=== PATIENT | male | born 1955 | race Hispanic/Latino ===

== ENCOUNTER 2018-04-03 15:47 | Emergency (ER) | payer SELFPAY | END 2018-04-03 17:08 | disposition home or self-care (01) | LOC: ERS 15:47 | DX: M72.2 Plantar fascial fibromatosis (principal); E11.9 Type 2 diabetes mellitus without complications; I10 Essential (primary) hypertension; I25.10 Atherosclerotic heart disease of native coronary artery without angina pectoris; I25.2 Old myocardial infarction; Z87.891 Personal history of nicotine dependence; Z79.4 Long term (current) use of insulin; Z79.899 Other long term (current) drug therapy | CPT/HCPCS: 99283 ==

== ENCOUNTER 2018-09-26 10:42 | Emergency (ER) | payer BC, SELFPAY ==
[2018-09-26 12:12] LABS: Anion Gap 10 mmol/L (10-20); BUN (Urea Nitrogen) 11 mg/dL (8.4-25.7); Calc. Creatinine Clearance 0 mL/min (70-130); Carbon Dioxide 27 mmol/L (22-29); Chloride 102 mmol/L (98-107); Estimated GFR-MDRD 88; Glucose 344 mg/dL (70-105); Potassium 4.1 mmol/L (3.5-5.1); Sodium 135 mmol/L (136-145)
== END 2018-09-26 12:30 | disposition home or self-care (01) ==
LOC: ERS 10:42
DX: M62.838 Other muscle spasm (principal); E11.9 Type 2 diabetes mellitus without complications; Z79.4 Long term (current) use of insulin; I10 Essential (primary) hypertension; I25.10 Atherosclerotic heart disease of native coronary artery without angina pectoris; I25.2 Old myocardial infarction; Z87.891 Personal history of nicotine dependence; Z79.899 Other long term (current) drug therapy
CPT/HCPCS: 36415; 80048; 83735; 99284

== ENCOUNTER 2019-02-01 09:48 | Emergency (ER) | payer BC, SELFPAY ==
[2019-02-01 11:54] LABS: Bilirubin Negative (Negative); Blood, Urine Negative (Negative); Glucose, Urine (Dipstick) >=1000 mg/dL (Negative); Leukocyte Negative (Negative); Nitrite Negative (Negative); Protein, Urine (Dipstick) Trace mg/dL (Neg-Trace); pH, Urine 7.5 (5.0-9.0)
[2019-02-01 12:00] LABS: Clarity CLEAR (Clear)
[2019-02-01 12:06] LABS: Syphilis Antibody Nonreactive (Nonreactive); Syphilis Antibody Index 0.02 S/CO (<1.00 Non-Reactive)
== END 2019-02-01 11:14 | disposition home or self-care (01) ==
LOC: ERS 09:48
DX: N47.1 Phimosis (principal); E11.9 Type 2 diabetes mellitus without complications; I10 Essential (primary) hypertension; I25.10 Atherosclerotic heart disease of native coronary artery without angina pectoris; I25.2 Old myocardial infarction; Z87.891 Personal history of nicotine dependence; Z79.4 Long term (current) use of insulin; Z79.899 Other long term (current) drug therapy
CPT/HCPCS: 36415; 81003; 86780; 99283

== ENCOUNTER 2020-06-06 14:39 | Outpatient (CLI) | payer BC, OTHER ==
--- NOTE | 2020-06-06 15:51 | RAD ---
Exam: Chest one view HISTORY:Preoperative exam. Comparison: 12/14/2016 FINDINGS: Cardiac silhouette: Normal. Sternotomy wires. Aorta: Unremarkable Pulmonary vessels: Normal Costophrenic angles: Clear LUNGS: No masses or consolidation. Pneumothorax: None Osseous abnormalities: None IMPRESSION: No acute cardiopulmonary process.
[2020-06-06 18:09] LABS: #Basophils 0.1 thou/uL (0.0-0.2); #Eosinphils 0.2 thou/uL (0.0-0.7); #Monocytes 0.6 thou/uL (0.11-0.59); #Neutrophils 3.1 thou/uL (1.40-6.50); %Basophils 1.4 % (0.0-1.0); %Lymphocytes 33.9 % (21.0-51.0); %Monocytes 9.4 % (0.0-10.0); %Neutrophils 52.4 % (42.0-75.0); Mean Corpuscular HGB CONC 33.4 g/dL (32.0-36.0); Mean Corpuscular Hemoglobin 30.3 pg (27.0-31.0); Mean Corpuscular Volume 90.7 fL (78.0-98.0); Mean Platelet Volume 10.3 fL (7.4-10.4); Platelet Count 177 thou/uL (130-400); RBC Distribution Width 11.8 % (11.5-14.5); Red Blood Cell (RBC) Count 4.95 mill/uL (4.70-6.10)
[2020-06-06 19:15] LABS: ALT (SGPT) 18 U/L (8-55); AST (SGOT) 17 U/L (5-34); Albumin 4.1 g/dL (3.4-4.8); Alkaline Phosphatase 139 U/L (40-110); Anion Gap 10 mmol/L (10-20); BUN (Urea Nitrogen) 18 mg/dL (8.4-25.7); Bilirubin, Total 0.5 mg/dL (0.2-1.2); Calc. Creatinine Clearance 0 mL/min (70-130); Calcium 9.3 mg/dL (7.8-10.44); Carbon Dioxide 24 mmol/L (23-31); Cardiac Risk 7.1 (Less than 4.5); Chloride 103 mmol/L (98-107); Cholesterol 178 mg/dl (< 200 Desired); Estimated GFR-MDRD 84; Glucose 464 mg/dL (80-115); HDL Cholesterol 25 mg/dL (>60 Neg Risk); Potassium 4.4 mmol/L (3.5-5.1); Protein, Total 7.1 g/dL (5.8-8.1); Sodium 133 mmol/L (136-145); Triglycerides 863 mg/dL (Less than 150)
[2020-06-07 13:47] LABS: SARS-CoV-2 MS2 Positive; SARS-CoV-2 N Gene Negative; SARS-CoV-2 S Gene Negative; SARS-CoV-2 orf1ab Negative
== END 2020-06-06 14:40 | disposition home or self-care (01) ==
LOC: LABBT 14:39
PROVIDERS: ATTEND Internal Medicine Cardiovascular Disease
DX: Z01.818 Encounter for other preprocedural examination (principal); Z11.59 Encounter for screening for other viral diseases; I25.5 Ischemic cardiomyopathy; R94.39 Abnormal result of other cardiovascular function study
CPT/HCPCS: 71045; 80053; 80061; 85025; 87635; 93005; 93010; U0003

== ENCOUNTER 2020-06-09 06:15 | Observation (INO) | payer BC ==
[2020-06-09] MEDS ORDERED: Heparin 10,000 UNITS/1 ML VIAL ONE (07:46)
[2020-06-09] MEDS ORDERED: Midazolam HCl 2 mg/2 ml Vial ONE (08:28)
[2020-06-09] MEDS ORDERED: Fentanyl 100 MCG/2 ML VIAL ONE (08:28)
[2020-06-09] MEDS ORDERED: Aggrastat 12.5 MG/250 ML 250 ML ONE (09:01)
[2020-06-09] MEDS ORDERED: Adenosine 6 MG/2 ML VIAL ONE (09:03)
[2020-06-09] MEDS ORDERED: Clopidogrel Bisulfate 300 MG TAB ONE (09:19)
[2020-06-09] MEDS ORDERED: Nitroglycerin 0.4 MG TAB (25 Tab Bottle) SL PRN (11:10)
[2020-06-09] MEDS ORDERED: Morphine 2 MG/ML VIAL SLOW IVP PRN (11:11)
[2020-06-09] MEDS ORDERED: Morphine 4 MG/ML VIAL SLOW IVP PRN (11:12)
[2020-06-09] MEDS ORDERED: Aggrastat 12.5 MG/250 ML 250 ML IVPB SCH (11:15)
[2020-06-09] MEDS ORDERED: Sodium Chloride 0.9% 1,000 ML IV SCH (11:15)
[2020-06-09] MEDS ORDERED: Iopamidol 370 76% 50 ML VIAL FS ONE (11:50)
[2020-06-09] MEDS ORDERED: Iopamidol 370 76% 100 ML VIAL ONE (11:50)
[2020-06-09 18:40] VITALS: BMI 28.8
[2020-06-09] MEDS: Carvedilol 3.125 MG TAB PO SCH (19:15)
[2020-06-09] MEDS: Icosapent Ethyl 1 GM CAPSULE PO SCH (19:16)
[2020-06-09] MEDS ORDERED: Icosapent Ethyl 1 GM CAPSULE PO SCH (21:00)
[2020-06-09] MEDS ORDERED: Insulin Glargine 40 UNITS in Pre-Filled Syringe 1 EACH SC SCH (21:00)
[2020-06-09] MEDS ORDERED: Atorvastatin Calcium 40 MG TAB PO SCH (21:00)
[2020-06-09] MEDS ORDERED: Carvedilol 3.125 MG TAB PO SCH (21:00)
[2020-06-09] MEDS: glyBURIDE 5 MG TAB PO SCH (22:04)
[2020-06-10 04:31] LABS: #Basophils 0.1 thou/uL (0.0-0.2); #Eosinphils 0.1 thou/uL (0.0-0.7); #Lymphocytes 2.2 thou/uL (1.20-3.40); #Monocytes 0.6 thou/uL (0.11-0.59); #Neutrophils 5.8 thou/uL (1.40-6.50); %Basophils 0.9 % (0.0-1.0); %Eosinophils 1.4 % (0.0-10.0); %Monocytes 6.9 % (0.0-10.0); %Neutrophils 65.8 % (42.0-75.0); Hemoglobin 14.3 g/dL (14.0-18.0); Mean Corpuscular HGB CONC 33.5 g/dL (32.0-36.0); Mean Corpuscular Hemoglobin 30.4 pg (27.0-31.0); Mean Corpuscular Volume 90.9 fL (78.0-98.0); Mean Platelet Volume 9.6 fL (7.4-10.4); Platelet Count 170 thou/uL (130-400); RBC Distribution Width 11.7 % (11.5-14.5); White Blood Cell (WBC) Count 8.8 thou/uL (4.8-10.8)
[2020-06-10 05:06] LABS: ALT (SGPT) 12 U/L (8-55); AST (SGOT) 10 U/L (5-34); Albumin 3.5 g/dL (3.4-4.8); Alkaline Phosphatase 90 U/L (40-110); Anion Gap 9 mmol/L (10-20); BUN (Urea Nitrogen) 15 mg/dL (8.4-25.7); Bilirubin, Total 0.8 mg/dL (0.2-1.2); Calc. Creatinine Clearance 101 mL/min (70-130); Calcium 8.7 mg/dL (7.8-10.44); Carbon Dioxide 26 mmol/L (23-31); Chloride 105 mmol/L (98-107); Estimated GFR-MDRD Greater than 90; Globulin 2.7 g/dL (2.4-3.5); Glucose 285 mg/dL (80-115); Protein, Total 6.2 g/dL (5.8-8.1); Sodium 136 mmol/L (136-145)
[2020-06-10] MEDS ORDERED: Dextrose 5% in Water 1,000 ML IV PRN (05:50)
[2020-06-10] MEDS ORDERED: Dextrose 50% Abboject 50 ML SYRINGE IVP PRN (05:50)
[2020-06-10] MEDS ORDERED: HumaLOG 300 UNITS/3 ML VIAL SC PRN (05:50)
[2020-06-10 07:24] VITALS: TEMP 98.3
[2020-06-10] MEDS: Icosapent Ethyl 1 GM CAPSULE PO SCH (08:20)
[2020-06-10] MEDS: glyBURIDE 5 MG TAB PO SCH (08:20)
[2020-06-10] MEDS: Carvedilol 3.125 MG TAB PO SCH (08:20)
[2020-06-10] MEDS ORDERED: Furosemide 20 MG TAB PO SCH (09:00)
[2020-06-10] MEDS ORDERED: Alogliptin 6.25 MG TAB PO SCH (09:00)
[2020-06-10] MEDS ORDERED: Clopidogrel Bisulfate 75 MG TAB PO SCH (09:00)
[2020-06-10] MEDS ORDERED: Aspirin 81 mg Enteric Coated Tablet PO SCH ×2 (09:00)
[2020-06-10 12:40] VITALS: BP 136/66
--- NOTE | 2020-06-12 12:48 | DIS ---
DATE OF ADMISSION: 06/09/2020 DATE OF DISCHARGE: 06/10/2020 Pradip Schaeffer is also known as Pradip Schaeffer. DISCHARGE DIAGNOSES: 1. Bare-metal stent placement in the graft to the right posterior descending artery. 2. Status post coronary artery bypass grafting x4 with grafts patent at this time. 3. History of anterior ST-segment elevation myocardial infarction prior to bypass surgery with stent placed in the mid left anterior descending in November 2011. 4. Noncompliance with followups and medications, having not been seen from 2013 until March 2020. 5. Hypertension. 6. Hypercholesterolemia with cholesterol 178, triglycerides 863, and HDL 25. 7. Diabetes, very poorly controlled with blood sugars from 285 to 305. 8. Former smoker. 9. Atrial fibrillation after coronary artery bypass grafting, but no recurrence since that time. 10. Ischemic cardiomyopathy with chronic ejection fraction of 35% to 40% in April 2014; however, this fell on echocardiogram to 30% to 35% and at catheterization is 25%-30%. The patient is being fitted for a LifeVest. DISCHARGE MEDICATIONS: 1. Alogliptin 12.5 mg daily. 2. Aspirin 81 daily. 3. Plavix 75 mg q.a.m. x1 month. 4. Atorvastatin 40 mg at bedtime. 5. Vascepa 2000 mg b.i.d. 6. Carvedilol 3.125 b.i.d. 7. Furosemide 20 mg q.a.m. 8. DiaBeta 5 mg q.a.m. 9. Lantus insulin 40 units at bedtime. 10. Nitroglycerin p.r.n. 11. Entresto 24/26 b.i.d. DISCHARGE DISPOSITION: The patient to be seen in 1 month with lipid testing and complete metabolic panel. It was emphasized to the daughter that she must bring all of his medications for each office visit and to each doctor that she sees. It is very confusing at times with medications being on a list and then the daughter states he is no longer taking that. There was confusion regarding potassium, lisinopril, and simvastatin and it is felt that all of those should be discontinued. HOSPITAL COURSE: Mr. Edgardo Schaeffer was not seen from 2013 until March 2020. He was sent for evaluation of his cardiac status. He had been placed on carvedilol 3 months prior to that, but had been off it for a year or two. When he was seen in March, he was placed on Vascepa 2000 mg b.i.d. EKG at that time showed inverted T-waves laterally, which was a new finding on his EKG. He underwent echocardiography, which revealed an ejection fraction of 30% to 35%, diastolic dysfunction, mild left atrial enlargement, mild mitral regurgitation, and mild tricuspid regurgitation. Due to the lateral wall changes on EKG, he underwent Lexiscan Cardiolite testing. This revealed an ejection fraction of 33%. There was a fixed defect in the distal anterior wall and apex and proximal distal inferior wall. The apical defect is consistent with his STEMI in 2011; however, the fixed inferior wall defect would not be anticipated given his previous anatomy. In the office, arrangements were made for him to get a LifeVest. He now comes for catheterization with his abnormal Cardiolite. Left ventriculogram revealed ejection fraction of 25% to 30%. There was severe global hypokinesis. There was a 50% left main, 60% proximal LAD, total occlusion of the mid LAD at the stent. The first diagonal was totally occluded. Ramus was normal. The circumflex had an 80% mid stenosis and an 80% lesion to the first obtuse marginal. The circumflex was small and was too small for bypass. Right coronary artery revealed a 90% followed by 100% mid occlusion. Bypass grafts revealed patent CATHERINE to the LAD. The diagonal graft was patent. The right posterior lateral graft was patent; however, had a 90% stenosis with thrombus present. The right posterior descending artery graft was piggybacked onto the RPLA graft proximal to the lesion. He then underwent placement of Rebel 2.5 x 24 post dilated with a 3 mm balloon. Bare-metal stent was placed due to the patient's significant noncompliance. He was treated with Aggrastat for 12 hours and observed overnight. LifeVest is being placed and then he may be discharged. Job ID: [id number]
== END 2020-06-10 12:32 | disposition home or self-care (01) ==
LOC: CCL 06:15 → 2NO 10:04
PROVIDERS: ADMIT Internal Medicine Cardiovascular Disease; ATTEND Internal Medicine Cardiovascular Disease
PROC: 4A023N7 Measurement of Cardiac Sampling and Pressure, Left Heart, Percutaneous Approach (ICD-10-PCS; principal; 2020-06-10)
PROC: B2111ZZ Fluoroscopy of Multiple Coronary Arteries using Low Osmolar Contrast (ICD-10-PCS; 2020-06-10)
DX: I25.10 Atherosclerotic heart disease of native coronary artery without angina pectoris (principal); I25.5 Ischemic cardiomyopathy; I48.91 Unspecified atrial fibrillation; E11.9 Type 2 diabetes mellitus without complications; I10 Essential (primary) hypertension; E78.00 Pure hypercholesterolemia, unspecified; Z79.4 Long term (current) use of insulin; Z79.899 Other long term (current) drug therapy; Z87.891 Personal history of nicotine dependence; Z91.19 Patient's noncompliance with other medical treatment and regimen; Z95.1 Presence of aortocoronary bypass graft; Z95.5 Presence of coronary angioplasty implant and graft
CPT/HCPCS: 36415; 36416; 80053; 85025; 85347; 92928; 93005; 93459; 93798; 96365; 96376; 99152; 99153; C1876; G0378; J0153; J1644; J1815; J2250; J3010; J3246; Q9967

== ENCOUNTER 2020-10-28 13:16 | Emergency (ER) | payer BC, MEDICARE ==
[2020-10-28 14:29] LABS: #Lymphocytes 1.9 thou/uL (1.20-3.40); #Monocytes 0.8 thou/uL (0.11-0.59); %Basophils 0.3 % (0.0-1.0); %Eosinophils 0.1 % (0.0-10.0); %Lymphocytes 13.6 % (21.0-51.0); %Monocytes 5.6 % (0.0-10.0); %Neutrophils 80.4 % (42.0-75.0); Hemoglobin 16.6 g/dL (14.0-18.0); Mean Corpuscular HGB CONC 34.8 g/dL (32.0-36.0); Mean Corpuscular Hemoglobin 31.4 pg (27.0-31.0); Mean Platelet Volume 8.8 fL (7.4-10.4); Platelet Count 219 thou/uL (130-400); RBC Distribution Width 12.1 % (11.5-14.5); Red Blood Cell (RBC) Count 5.29 mill/uL (4.70-6.10); White Blood Cell (WBC) Count 13.7 thou/uL (4.8-10.8)
[2020-10-28 14:50] LABS: ALT (SGPT) 15 U/L (8-55); AST (SGOT) 14 U/L (5-34); Albumin 4.4 g/dL (3.4-4.8); Alkaline Phosphatase 104 U/L (40-110); Anion Gap 16 mmol/L (10-20); BUN (Urea Nitrogen) 17 mg/dL (8.4-25.7); Bilirubin, Total 1.5 mg/dL (0.2-1.2); Calc. Creatinine Clearance 0 mL/min (70-130); Calcium 9.6 mg/dL (7.8-10.44); Carbon Dioxide 25 mmol/L (23-31); Chloride 98 mmol/L (98-107); Globulin 3.7 g/dL (2.4-3.5); Glucose 282 mg/dL (80-115); Potassium 4.4 mmol/L (3.5-5.1); Protein, Total 8.1 g/dL (5.8-8.1); Sodium 135 mmol/L (136-145)
== END 2020-10-28 15:40 | disposition home or self-care (01) ==
LOC: ERS 13:16
DX: M62.838 Other muscle spasm (principal); M54.2 Cervicalgia; E11.65 Type 2 diabetes mellitus with hyperglycemia; Z79.899 Other long term (current) drug therapy
CPT/HCPCS: 36415; 80053; 83880; 84484; 85025; 93005

== ENCOUNTER 2020-10-30 01:10 | Emergency (ER) | payer BC, MEDICARE, SELFPAY ==
[2020-10-30] MEDS ORDERED: Bupivacaine 0.5% 10 ML VIAL ONE (02:38)
[2020-10-30] MEDS ORDERED: diphenhydrAMINE 50 MG/ML VIAL ONE (02:38)
[2020-10-30] MEDS ORDERED: Metoclopramide HCl 10 MG/2 ML VIAL ONE (02:38)
[2020-10-30] MEDS ORDERED: Ketorolac Tromethamine 30 MG/ML VIAL ONE (02:38)
[2020-10-30] MEDS ORDERED: Acetaminophen 500 MG TAB ONE (02:38)
== END 2020-10-30 03:40 | disposition home or self-care (01) ==
LOC: ERS 01:10
DX: M54.81 Occipital neuralgia (principal); E11.9 Type 2 diabetes mellitus without complications; I10 Essential (primary) hypertension; I25.10 Atherosclerotic heart disease of native coronary artery without angina pectoris; I25.2 Old myocardial infarction; Z87.891 Personal history of nicotine dependence; Z79.4 Long term (current) use of insulin; Z79.899 Other long term (current) drug therapy
CPT/HCPCS: 94760; 96365; 96375; J1200; J1885; J2765; J3490

== ENCOUNTER 2020-10-30 14:20 | Emergency (ER) | payer SELFPAY ==
[~2020-10-30 14:20] MED LIST: Iopamidol-370 76% 500 ML 1 ML ONE
[2020-10-30] MEDS ORDERED: Metoclopramide HCl 10 MG/2 ML VIAL ONE (18:30)
[2020-10-30] MEDS ORDERED: Acetaminophen 500 MG TAB ONE (18:30)
[2020-10-30] MEDS ORDERED: diphenhydrAMINE 50 MG/ML VIAL ONE (18:30)
[2020-10-30] MEDS ORDERED: Dexamethasone 10 MG/ML VIAL ONE (18:30)
[2020-10-30 19:00] LABS: #Basophils 0.1 thou/uL (0.0-0.2); #Lymphocytes 1.9 thou/uL (1.20-3.40); #Monocytes 0.7 thou/uL (0.11-0.59); #Neutrophils 14.3 thou/uL (1.40-6.50); %Basophils 0.3 % (0.0-1.0); %Eosinophils 0.1 % (0.0-10.0); %Lymphocytes 11.1 % (21.0-51.0); %Monocytes 4.2 % (0.0-10.0); %Neutrophils 84.3 % (42.0-75.0); Hemoglobin 15.7 g/dL (14.0-18.0); Mean Corpuscular HGB CONC 34.8 g/dL (32.0-36.0); Mean Corpuscular Hemoglobin 31.6 pg (27.0-31.0); Mean Corpuscular Volume 90.8 fL (78.0-98.0); Mean Platelet Volume 9.1 fL (7.4-10.4); Platelet Count 198 thou/uL (130-400); RBC Distribution Width 11.9 % (11.5-14.5); Red Blood Cell (RBC) Count 4.96 mill/uL (4.70-6.10); White Blood Cell (WBC) Count 16.9 thou/uL (4.8-10.8)
[2020-10-30 19:24] LABS: ALT (SGPT) 12 U/L (8-55); AST (SGOT) 11 U/L (5-34); Alkaline Phosphatase 99 U/L (40-110); Anion Gap 15 mmol/L (10-20); BUN (Urea Nitrogen) 16 mg/dL (8.4-25.7); Bilirubin, Total 1.1 mg/dL (0.2-1.2); CK (CPK) 116 U/L (30-200); Calc. Creatinine Clearance 0 mL/min (70-130); Calcium 8.8 mg/dL (7.8-10.44); Carbon Dioxide 26 mmol/L (23-31); Chloride 97 mmol/L (98-107); Globulin 3.3 g/dL (2.4-3.5); Glucose 244 mg/dL (80-115); Potassium 4.1 mmol/L (3.5-5.1); Protein, Total 7.3 g/dL (5.8-8.1); Sodium 134 mmol/L (136-145)
--- NOTE | 2020-10-30 19:33 | CT ---
CT Thoracic Spine WO Con History: Pain Comparison: None. Findings: No acute thoracic spine fracture or malalignment. The aortic contour appears normal. Mild atelectasis within the lung bases. No acute thoracic spine fracture or malalignment. Mild vacuum disc phenomenon of the mid and lower ve rtebral disc spaces. Paraspinal soft tissues are unremarkable. Streak artifact from diaphragmatic motion through the T9/T1 0 disc space is the appearance of a disc protrusion although this is felt to be artifactual. Impression: No acute thoracic spine abnormality.
--- NOTE | 2020-10-30 19:52 | CT ---
CTA Angio Head W WO Con CT brain without contrast History: Headache Comparison: None. Findings: CT brain without contrast: Extensive sylvian fissure subarachnoid hemorrhage extending joan g the anterior and posterior falx along with the interpeduncular cistern. No ischemic infarction is appreciated. Calvarium is intact. CT angiogram head and neck with contrast: Lung apices are relatively clear. Vertebral arteries are co dominant and patent. The right common carotid artery is patent. The right internal carotid artery is completely occluded. The cervical, petrous, supraclinoid ICA is occluded. The left common carotid artery is nearly completely occluded with minimal flow of the cervical portio n. Absent flow within the majority of the cervical, petrous, and supraclinoid internal carotid arteries. Thin attenuated anterior cerebral and posterior cerebral arteries. Hypertrophy posterior cerebral art eries. 5 mm pedunculated aneurysm from right P1 segment axial image 214. Impression: 1. Occluded intracranial internal carotid arteries. 2. 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 3. Very thin attenuated anterior cerebral arteries and middle cerebral arteries likely combination of vasospasm and decreased inflow from the occluded internal carotid arteries. 4. Occluded right cervical internal carotid artery. 5. Nearly completely occluded left common carotid artery and occluded left cervical internal carotid artery. 6. Subtle focal ectasia right M1 origin up to 3 mm may be sequelae of hypertrophic communication with the posterior circulation. 7. Neurosurgical consultation advised. 8. Extensive subarachnoid hemorrhage with [place] vasospasm. Findings were discussed with the ordering physician at 2 separate times, 7:20 PM for the subarachnoid hemorrhage and 7:40 PM for the vascular portion of the exam.
[2020-10-30 20:41] LABS: INR-International Normal Ratio 1.1; PTT 29.7 sec (22.9-36.1)
[2020-10-30] MEDS ORDERED: niCARdipine 20MG In NaCl 20 MG/200 ML BAG ONE (21:56)
[2020-10-30 22:58] LABS: SARS-CoV-2 NAA Rapid Test Not Detected (NotDetected)
--- NOTE | 2020-10-31 11:50 | CT ---
CTA Angio Head W WO Con CT brain without contrast History: Headache Comparison: None. Findings: CT brain without contrast: Extensive sylvian fissure subarachnoid hemorrhage extending joan g the anterior and posterior falx along with the interpeduncular cistern. No ischemic infarction is appreciated. Calvarium is intact. CT angiogram head and neck with contrast: Lung apices are relatively clear. Vertebral arteries are co dominant and patent. The right common carotid artery is patent. The right internal carotid artery is completely occluded. The cervical, petrous, supraclinoid ICA is occluded. The left common carotid artery is nearly completely occluded with minimal flow of the cervical portio n. Absent flow within the majority of the cervical, petrous, and supraclinoid internal carotid arteries. Thin attenuated anterior cerebral and posterior cerebral arteries. Hypertrophy posterior cerebral art eries. 5 mm pedunculated aneurysm from right P1 segment axial image 214. Impression: 1. Occluded intracranial internal carotid arteries. 2. 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 3. Very thin attenuated anterior cerebral arteries and middle cerebral arteries likely combination of vasospasm and decreased inflow from the occluded internal carotid arteries. 4. Occluded right cervical internal carotid artery. 5. Nearly completely occluded left common carotid artery and occluded left cervical internal carotid artery. 6. Subtle focal ectasia right M1 origin up to 3 mm may be sequelae of hypertrophic communication with the posterior circulation. 7. Neurosurgical consultation advised. 8. Extensive subarachnoid hemorrhage with [place] vasospasm. Findings were discussed with the ordering physician at 2 separate times, 7:20 PM for the subarachnoid hemorrhage and 7:40 PM for the vascular portion of the exam. Transcribed Date/Time: 10/31/2020 11:50 AM
== END 2020-10-30 22:29 | disposition short-term general hospital (02) ==
LOC: ERS 14:20
DX: I65.29 Occlusion and stenosis of unspecified carotid artery (principal); I60.9 Nontraumatic subarachnoid hemorrhage, unspecified; I72.9 Aneurysm of unspecified site; E11.9 Type 2 diabetes mellitus without complications; I10 Essential (primary) hypertension; I25.2 Old myocardial infarction; Z87.891 Personal history of nicotine dependence; Z79.4 Long term (current) use of insulin; Z79.899 Other long term (current) drug therapy
CPT/HCPCS: 36415; 70496; 70498; 72128; 80053; 82550; 83735; 84443; 84484; 85025; 85610; 85730; 86850; 86900; 86901; 93005; 96365; 96375; J1100; J1200; J2765; Q9967; U0002

== ENCOUNTER 2021-02-26 08:19 | Emergency (ER) | payer SELFPAY ==
[2021-02-26 08:57] LABS: #Basophils 0.1 thou/uL (0.0-0.2); #Eosinphils 0.1 thou/uL (0.0-0.7); #Lymphocytes 2.5 thou/uL (1.20-3.40); #Monocytes 0.8 thou/uL (0.11-0.59); %Basophils 0.8 % (0.0-1.0); %Eosinophils 0.9 % (0.0-10.0); %Lymphocytes 21.9 % (21.0-51.0); %Monocytes 6.6 % (0.0-10.0); %Neutrophils 69.8 % (42.0-75.0); Hemoglobin 16.5 g/dL (14.0-18.0); Mean Corpuscular HGB CONC 34.8 g/dL (32.0-36.0); Mean Corpuscular Hemoglobin 31.3 pg (27.0-31.0); Mean Corpuscular Volume 89.8 fL (78.0-98.0); Mean Platelet Volume 8.7 fL (7.4-10.4); Platelet Count 194 thou/uL (130-400); RBC Distribution Width 12.3 % (11.5-14.5); Red Blood Cell (RBC) Count 5.27 mill/uL (4.70-6.10); White Blood Cell (WBC) Count 11.4 thou/uL (4.8-10.8)
[2021-02-26 09:18] LABS: ALT (SGPT) 33 U/L (8-55); AST (SGOT) 23 U/L (5-34); Albumin 4.2 g/dL (3.4-4.8); Alkaline Phosphatase 119 U/L (40-110); Anion Gap 12 mmol/L (10-20); BUN (Urea Nitrogen) 17 mg/dL (8.4-25.7); Bilirubin, Total 0.7 mg/dL (0.2-1.2); Calc. Creatinine Clearance 0 mL/min (70-130); Calcium 9.8 mg/dL (7.8-10.44); Carbon Dioxide 27 mmol/L (23-31); Chloride 105 mmol/L (98-107); Globulin 3.2 g/dL (2.4-3.5); Glucose 189 mg/dL (80-115); Lipase 101 U/L (8-78); Potassium 3.9 mmol/L (3.5-5.1); Protein, Total 7.4 g/dL (5.8-8.1); Sodium 140 mmol/L (136-145)
[2021-02-26] MEDS ORDERED: Acetaminophen 500 MG TAB ONE (10:46)
== END 2021-02-26 11:06 | disposition home or self-care (01) ==
LOC: ERS 08:19
DX: R51.9 Headache, unspecified (principal); R11.2 Nausea with vomiting, unspecified; I25.2 Old myocardial infarction; I10 Essential (primary) hypertension; Z87.891 Personal history of nicotine dependence; Z79.899 Other long term (current) drug therapy
CPT/HCPCS: 36415; 70450; 80053; 83690; 85025; 93005; 94760

== ENCOUNTER 2023-01-01 17:51 | Emergency (ER) | payer SELFPAY | END 2023-01-01 18:18 | disposition home or self-care (01) | LOC: ERS 17:51 | DX: L03.113 Cellulitis of right upper limb (principal); I10 Essential (primary) hypertension; E11.9 Type 2 diabetes mellitus without complications; I25.2 Old myocardial infarction; Z87.891 Personal history of nicotine dependence; Z95.5 Presence of coronary angioplasty implant and graft | CPT/HCPCS: 99283 ==

== ENCOUNTER 2023-01-07 14:11 | Emergency (ER) | payer MEDICARE, SELFPAY ==
[2023-01-07 14:43] LABS: #Basophils 0.1 thou/uL (0.0-0.2); #Eosinphils 0.2 thou/uL (0.0-0.7); #Lymphocytes 2.4 thou/uL (1.20-3.40); #Monocytes 0.6 thou/uL (0.11-0.59); #Neutrophils 5.2 thou/uL (1.40-6.50); %Basophils 1.2 % (0.0-1.0); %Eosinophils 2.5 % (0.0-10.0); %Monocytes 6.7 % (0.0-10.0); %Neutrophils 61.7 % (42.0-75.0); Mean Corpuscular HGB CONC 35.3 g/dL (32.0-36.0); Mean Corpuscular Hemoglobin 32.7 pg (27.0-31.0); Mean Corpuscular Volume 92.6 fl (78.0-98.0); Mean Platelet Volume 9.1 fL (7.4-10.4); Platelet Count 194 10x3/uL (130-400); RBC Distribution Width 11.9 % (11.5-14.5); Red Blood Cell (RBC) Count 4.28 mill/uL (4.70-6.10); White Blood Cell (WBC) Count 8.5 10x3/uL (4.8-10.8)
[2023-01-07 15:02] LABS: ALT (SGPT) 25 U/L (8-55); AST (SGOT) 20 U/L (5-34); Albumin 3.8 g/dL (3.4-4.8); Alkaline Phosphatase 182 U/L (40-110); Anion Gap 12 mmol/L (10-20); BUN (Urea Nitrogen) 19 mg/dL (8.4-25.7); Bilirubin, Total 0.7 mg/dL (0.2-1.2); Calc. Creatinine Clearance 0 mL/min (70-130); Calcium 9.1 mg/dL (7.8-10.44); Carbon Dioxide 27 mmol/L (23-31); Chloride 101 mmol/L (98-107); Estimated GFR 95; Globulin 3.3 g/dL (2.4-3.5); Glucose 310 mg/dL (80-115); Potassium 3.8 mmol/L (3.5-5.1); Protein, Total 7.1 g/dL (5.8-8.1); Sodium 136 mmol/L (136-145)
[2023-01-07] MEDS ORDERED: Lidocaine 1% w/Epinephrine 1:100K 20 ML VIAL ONE (16:08)
== END 2023-01-07 18:10 | disposition home or self-care (01) ==
LOC: ERS 14:11
DX: L03.312 Cellulitis of back [any part except buttock and flank] (principal); L02.212 Cutaneous abscess of back [any part, except buttock and flank]; E11.9 Type 2 diabetes mellitus without complications; I10 Essential (primary) hypertension; I25.2 Old myocardial infarction; Z87.891 Personal history of nicotine dependence
CPT/HCPCS: 10060; 36415; 80053; 85025; 87070; 87205

== ENCOUNTER 2023-04-07 06:10 | Emergency (ER) | payer MEDICARE, SELFPAY ==
[2023-04-07 06:48] LABS: #Basophils 0.1 thou/uL (0.0-0.2); #Eosinphils 0.1 thou/uL (0.0-0.7); #Monocytes 0.5 thou/uL (0.11-0.59); #Neutrophils 4.4 thou/uL (1.40-6.50); %Basophils 0.8 % (0.0-1.0); %Lymphocytes 16.5 % (21.0-51.0); %Monocytes 8.7 % (0.0-10.0); %Neutrophils 72.7 % (42.0-75.0); Hemoglobin 14.3 g/dL (14.0-18.0); Mean Corpuscular HGB CONC 32.9 g/dL (32.0-36.0); Mean Corpuscular Hemoglobin 29.8 pg (27.0-31.0); Mean Corpuscular Volume 90.4 fl (78.0-98.0); Mean Platelet Volume 10.5 fL (7.4-10.4); Platelet Count 177 10x3/uL (130-400)
[2023-04-07] MEDS ORDERED: Dexamethasone 10 MG/ML VIAL ONE (07:05)
[2023-04-07] MEDS ORDERED: cefTRIAXone (ROCEPHIN) 1 GM VIAL ONE (07:05)
[2023-04-07] MEDS ORDERED: Lidocaine 1% MPF 2 ML VIAL ONE (07:06)
== END 2023-04-07 07:19 | disposition home or self-care (01) ==
LOC: ERS 06:10
DX: J18.9 Pneumonia, unspecified organism (principal); I10 Essential (primary) hypertension; E11.9 Type 2 diabetes mellitus without complications; Z87.891 Personal history of nicotine dependence; Z79.899 Other long term (current) drug therapy; Z79.84 Long term (current) use of oral hypoglycemic drugs; Z79.4 Long term (current) use of insulin
CPT/HCPCS: 71045; 85025; 94760; 96372; J0696; J1100

== ENCOUNTER 2023-11-30 08:58 | Emergency (ER) | payer MEDICARE ==
[2023-11-30 09:26] LABS: #Basophils 0.1 thou/uL (0.0-0.2); #Eosinphils 0.2 thou/uL (0.0-0.7); #Monocytes 0.7 thou/uL (0.11-0.59); #Neutrophils 6.8 thou/uL (1.40-6.50); %Basophils 1.3 % (0.0-1.0); %Eosinophils 1.9 % (0.0-10.0); %Lymphocytes 20.4 % (21.0-51.0); %Monocytes 6.8 % (0.0-10.0); %Neutrophils 69.3 % (42.0-75.0); Hematocrit 44.8 % (42.0-52.0); Hemoglobin 15.5 g/dL (14.0-18.0); Mean Corpuscular HGB CONC 34.6 g/dL (32.0-36.0); Mean Corpuscular Hemoglobin 31.1 pg (27.0-31.0); Platelet Count 207 10x3/uL (130-400); RBC Distribution Width 12.7 % (11.5-14.5); Red Blood Cell (RBC) Count 4.98 mill/uL (4.70-6.10); White Blood Cell (WBC) Count 9.8 10x3/uL (4.8-10.8)
[2023-11-30 09:50] LABS: ALT (SGPT) 14 U/L (8-55); AST (SGOT) 13 U/L (5-34); Albumin 4.1 g/dL (3.4-4.8); Alkaline Phosphatase 112 U/L (40-110); Anion Gap 14 mmol/L (10-20); BUN (Urea Nitrogen) 12 mg/dL (8.4-25.7); Bilirubin, Total 0.9 mg/dL (0.2-1.2); Calc. Creatinine Clearance 0 mL/min (70-130); Calcium 9.2 mg/dL (7.8-10.44); Carbon Dioxide 23 mmol/L (23-31); Chloride 102 mmol/L (98-107); Estimated GFR 97; Globulin 3.4 g/dL (2.4-3.5); Glucose 253 mg/dL (80-115); Lipase 69 U/L (8-78); Potassium 3.8 mmol/L (3.5-5.1); Protein, Total 7.5 g/dL (5.8-8.1); Sodium 135 mmol/L (136-145)
== END 2023-11-30 10:00 | disposition home or self-care (01) ==
LOC: ERS 08:58
DX: R07.89 Other chest pain (principal); E11.9 Type 2 diabetes mellitus without complications; I10 Essential (primary) hypertension; I25.2 Old myocardial infarction; Z87.891 Personal history of nicotine dependence
CPT/HCPCS: 71045; 80053; 83690; 84484; 85025; 93005

== ENCOUNTER 2024-01-03 08:08 | Inpatient (IN) | payer MEDICARE ==
[2024-01-03] MEDS ORDERED: Ondansetron ODT 4 MG TAB ONE (08:32)
[2024-01-03 09:17] LABS: #Basophils 0.1 thou/uL (0.0-0.2); #Monocytes 0.9 thou/uL (0.11-0.59); #Neutrophils 10.4 thou/uL (1.40-6.50); %Basophils 0.6 % (0.0-1.0); %Eosinophils 0.2 % (0.0-10.0); %Lymphocytes 10.2 % (21.0-51.0); %Monocytes 6.8 % (0.0-10.0); Hematocrit 44.8 % (42.0-52.0); Hemoglobin 15.7 g/dL (14.0-18.0); Mean Corpuscular Hemoglobin 31.2 pg (27.0-31.0); Mean Corpuscular Volume 89.1 fl (78.0-98.0); Mean Platelet Volume 11.4 fL (7.4-10.4); Platelet Count 192 10x3/uL (130-400); RBC Distribution Width 12.8 % (11.5-14.5); Red Blood Cell (RBC) Count 5.03 mill/uL (4.70-6.10); White Blood Cell (WBC) Count 12.7 10x3/uL (4.8-10.8)
[2024-01-03 09:25] LABS: Bacteria/HPF None Seen HPF (None Seen); Bilirubin Negative (Negative); Blood, Urine Negative (Negative); CAUTI Indications for Culture Dysuria,urgency,freq; Clarity Clear (Clear); Glucose, Urine (Dipstick) Greater than 1000 mg/dL (Negative); Ketone, Urine 10 mg/dL (Negative); Leukocyte Negative Leu/uL (Negative); Nitrite Negative (Negative); Protein, Urine (Dipstick) 30 mg/dL (Neg-Trace); RBC/HPF 0-3 HPF (0-3); Squamous Epithelial 0-3 HPF (0-3); Urobilinogen Normal mg/dL (Less than 2); WBC/HPF 0-3 HPF (0-3)
[2024-01-03 09:26] LABS: Urine Culture Reflex No No
[2024-01-03 09:46] LABS: ALT (SGPT) 447 U/L (8-55); AST (SGOT) 819 U/L (5-34); Albumin 4.1 g/dL (3.4-4.8); Alkaline Phosphatase 205 U/L (40-110); Anion Gap 16 mmol/L (10-20); BUN (Urea Nitrogen) 20 mg/dL (8.4-25.7); Calc. Creatinine Clearance 0 mL/min (70-130); Calcium 9.1 mg/dL (7.8-10.44); Carbon Dioxide 24 mmol/L (23-31); Chloride 99 mmol/L (98-107); Critical Call Chemistry NUR.NRA @0945; Estimated GFR 74; Globulin 3.5 g/dL (2.4-3.5); Glucose 408 mg/dL (80-115); Protein, Total 7.6 g/dL (5.8-8.1); Sodium 134 mmol/L (136-145)
[2024-01-03 10:08] LABS: Lipase 12341 U/L (8-78)
[2024-01-03] MEDS ORDERED: Piperacillin/Tazobactam 4.5 GM VIAL ONE (10:46)
[2024-01-03] MEDS ORDERED: Sodium Chloride 0.9% 100 ML ONE (10:46)
[2024-01-03] MEDS ORDERED: Sodium Chloride 0.9% 1,000 ML IV SCH ×2 (12:00→12:45)
[2024-01-03] MEDS ORDERED: Glucagon 1 MG/ML KIT IM PRN (12:04)
[2024-01-03] MEDS ORDERED: Dextrose 50% Abboject 50 ML SYRINGE SLOW IVP PRN (12:04)
[2024-01-03] MEDS ORDERED: Dextrose 5% in Water 1,000 ML IV PRN (12:04)
[2024-01-03] MEDS ORDERED: HYDROmorphone 0.5 MG/0.5 ML SYRINGE ONE (12:16)
[2024-01-03] MEDS ORDERED: Insulin Regular 300 UNITS/3 ML VIAL ONE (12:35)
[2024-01-03] MEDS ORDERED: Sodium Chloride 0.45% 1,000 ML IV SCH (12:45)
[2024-01-03 13:46] LABS: HBCM Index 0.06 S/CO (0-0.79); HBSAg Index 0.18 S/CO (0-0.99); Hep A IgM AB Non-Reactive S/CO (NonReactive); Hep A IgM S/CO 0.09 S/CO (0-0.79); Hep B Surf Ag Non-Reactive S/CO (NonReactive); Hep C IgG Ab Non-Reactive S/CO (NonReactive); Hep C Index 0.06 S/CO (0-0.79); Hepatitis B Core IgM Abs Non-Reactive S/CO (NonReactive)
[2024-01-03] MEDS ORDERED: Iopamidol-370 76% 500 ML MDV (1 ML CHARGE) ONE (14:13)
[2024-01-03] MEDS: Sodium Chloride 0.9% 1,000 ML IV SCH (14:40)
[2024-01-03] MEDS: Insulin Glargine 30 UNITS/0.3 ML VIAL SC SCH (14:40)
[2024-01-03] MEDS: HumaLOG 300 UNITS/3 ML VIAL SC PRN (16:42)
[2024-01-03] MEDS: Morphine 2 MG/ML VIAL SLOW IVP PRN (16:45)
[2024-01-03] MEDS: FLU VACC QS2023(65UP)/MF59C/PF 60 MCG/0.5 ML SYRINGE IM ONE (16:56)
[2024-01-03] MEDS: Ondansetron PF 4 MG/2 ML Vial IVP PRN (19:10)
[2024-01-03] MEDS: Promethazine HCl 25 MG in Sodium Chloride 0.9% 50 ML IVPB PRN (21:52)
[2024-01-04] MEDS: Ondansetron PF 4 MG/2 ML Vial IVP PRN (01:30)
[2024-01-04] MEDS: HumaLOG 300 UNITS/3 ML VIAL SC PRN (01:32)
[2024-01-04] MEDS: hydrALAZINE 20 MG/ML VIAL SLOW IVP PRN (01:35)
[2024-01-04] MEDS: Insulin Glargine 30 UNITS/0.3 ML VIAL SC SCH ×2 (02:45→08:44)
[2024-01-04 06:23] LABS: ALT (SGPT) 749 U/L (8-55); AST (SGOT) 1593 U/L (5-34); Albumin 3.6 g/dL (3.4-4.8); Alkaline Phosphatase 373 U/L (40-110); Anion Gap 20 mmol/L (10-20); BUN (Urea Nitrogen) 15 mg/dL (8.4-25.7); Bilirubin, Total 6.2 mg/dL (0.2-1.2); Calc. Creatinine Clearance 112 mL/min (70-130); Calcium 8.9 mg/dL (7.8-10.44); Carbon Dioxide 23 mmol/L (23-31); Cardiac Risk 6.2 (Less than 4.5); Chloride 104 mmol/L (98-107); Cholesterol 148 mg/dl (< 200 Desired); Estimated GFR 99; Glucose 291 mg/dL (80-115); HDL Cholesterol 24 mg/dL (>60 Neg Risk); LDL Cholesterol, Calculated 83 mg/dL; Potassium 3.5 mmol/L (3.5-5.1); Protein, Total 6.6 g/dL (5.8-8.1); Sodium 143 mmol/L (136-145); Triglycerides 203 mg/dL (Less than 150)
[2024-01-04 07:39] LABS: #Monocytes 1.2 thou/uL (0.11-0.59); #Neutrophils 14.7 thou/uL (1.40-6.50); %Basophils 0.2 % (0.0-1.0); %Lymphocytes 5.2 % (21.0-51.0); %Monocytes 7.1 % (0.0-10.0); Hematocrit 49.3 % (42.0-52.0); Mean Corpuscular HGB CONC 34.5 g/dL (32.0-36.0); Mean Corpuscular Hemoglobin 30.9 pg (27.0-31.0); Mean Corpuscular Volume 89.5 fl (78.0-98.0); Mean Platelet Volume 12.5 fL (7.4-10.4); Platelet Count 191 10x3/uL (130-400); RBC Distribution Width 13.1 % (11.5-14.5); Red Blood Cell (RBC) Count 5.51 mill/uL (4.70-6.10); White Blood Cell (WBC) Count 16.9 10x3/uL (4.8-10.8)
[2024-01-04] MEDS: Enoxaparin 40 MG (0.4 mL) SYRINGE SC SCH (08:43)
[2024-01-04] MEDS: Piperacillin/Tazobactam 3.375 GM in Sodium Chloride 0.9% 100 ML IVPB SCH ×2 (08:43→13:57)
[2024-01-04] MEDS: Carvedilol 6.25 MG TAB PO SCH (08:43)
[2024-01-05] MEDS: Melatonin 3 MG TAB PO PRN (00:34)
[2024-01-05 06:52] LABS: #Basophils 0.1 thou/uL (0.0-0.2); #Eosinphils 0.1 thou/uL (0.0-0.7); #Monocytes 1.2 thou/uL (0.11-0.59); #Neutrophils 14.5 thou/uL (1.40-6.50); %Basophils 0.3 % (0.0-1.0); %Eosinophils 0.5 % (0.0-10.0); %Lymphocytes 7.6 % (21.0-51.0); %Monocytes 7.2 % (0.0-10.0); %Neutrophils 83.7 % (42.0-75.0); Hematocrit 45.3 % (42.0-52.0); Hemoglobin 15.5 g/dL (14.0-18.0); Mean Corpuscular HGB CONC 34.2 g/dL (32.0-36.0); Mean Corpuscular Hemoglobin 30.8 pg (27.0-31.0); Mean Corpuscular Volume 89.9 fl (78.0-98.0); Mean Platelet Volume 11.6 fL (7.4-10.4); Platelet Count 171 10x3/uL (130-400); RBC Distribution Width 14.1 % (11.5-14.5); Red Blood Cell (RBC) Count 5.04 mill/uL (4.70-6.10); White Blood Cell (WBC) Count 17.3 10x3/uL (4.8-10.8)
[2024-01-05 07:04] LABS: INR-International Normal Ratio 1.2; Prothrombin Time 15.5 sec (12.0-14.7)
[2024-01-05 07:17] LABS: Immunoglob - G (Total IgG) 744 mg/dL (540-1822); Immunoglob - M (Total IgM) 37 mg/dL (22-240)
[2024-01-05 07:23] LABS: ALT (SGPT) 990 U/L (8-55); AST (SGOT) 1033 U/L (5-34); Acetaminophen Less than 10 mcg/mL (10.0-30.0); Albumin 3.4 g/dL (3.4-4.8); Alkaline Phosphatase 643 U/L (40-110); Anion Gap 15 mmol/L (10-20); BUN (Urea Nitrogen) 33 mg/dL (8.4-25.7); Bilirubin, Total 6.7 mg/dL (0.2-1.2); Calc. Creatinine Clearance 41 mL/min (70-130); Calcium 8.4 mg/dL (7.8-10.44); Carbon Dioxide 22 mmol/L (23-31); Chloride 109 mmol/L (98-107); Estimated GFR 35; Globulin 2.6 g/dL (2.4-3.5); Glucose 294 mg/dL (80-115); Iron 26 ug/dL (65-175); Iron Binding Capacity, Total 211 mcg/dL (261-462); Potassium 3.1 mmol/L (3.5-5.1); Sodium 143 mmol/L (136-145)
[2024-01-05] MEDS: Insulin Glargine 30 UNITS/0.3 ML VIAL SC SCH (10:04)
[2024-01-05] MEDS: Albumin 25% 25 GM (100 mL) BOT IVPB SCH (12:58)
[2024-01-05] MEDS: Sodium Chloride 0.9% 1,000 ML IV SCH (13:02)
[2024-01-05] MEDS ORDERED: Meropenem 1 GM in Sodium Chloride 0.9% 100 ML IVPB SCH (14:00)
[2024-01-05] MEDS: Meropenem 1 GM in Sodium Chloride 0.9% 100 ML IVPB SCH (14:05)
[2024-01-05] MEDS: Potassium Chloride 20 MEQ in Premix 1 BAG IVPB SCH (14:10)
[2024-01-05 18:34] LABS: Anion Gap 14 mmol/L (10-20); BUN (Urea Nitrogen) 39 mg/dL (8.4-25.7); Calc. Creatinine Clearance 40 mL/min (70-130); Calcium 8.2 mg/dL (7.8-10.44); Carbon Dioxide 21 mmol/L (23-31); Chloride 112 mmol/L (98-107); Estimated GFR 33; Glucose 199 mg/dL (80-115); Potassium 2.9 mmol/L (3.5-5.1); Sodium 144 mmol/L (136-145)
[2024-01-06] MEDS: Meropenem 1 GM in Sodium Chloride 0.9% 100 ML IVPB SCH (03:27)
[2024-01-06] MEDS: traMADol HCl 50 MG TAB PO SCH (06:09)
[2024-01-06 06:29] LABS: #Basophils 0.1 thou/uL (0.0-0.2); #Neutrophils 11.1 thou/uL (1.40-6.50); %Basophils 0.4 % (0.0-1.0); %Eosinophils 0.2 % (0.0-10.0); %Monocytes 7.4 % (0.0-10.0); %Neutrophils 83.5 % (42.0-75.0); Hematocrit 38.6 % (42.0-52.0); Hemoglobin 13.4 g/dL (14.0-18.0); Mean Corpuscular HGB CONC 34.7 g/dL (32.0-36.0); Mean Corpuscular Hemoglobin 30.9 pg (27.0-31.0); Mean Corpuscular Volume 88.9 fl (78.0-98.0); Mean Platelet Volume 11.7 fL (7.4-10.4); Platelet Count 157 10x3/uL (130-400); RBC Distribution Width 14.4 % (11.5-14.5); Red Blood Cell (RBC) Count 4.34 mill/uL (4.70-6.10); White Blood Cell (WBC) Count 13.2 10x3/uL (4.8-10.8)
[2024-01-06 06:52] LABS: ALT (SGPT) 792 U/L (8-55); AST (SGOT) 830 U/L (5-34); Albumin 3.4 g/dL (3.4-4.8); Alkaline Phosphatase 684 U/L (40-110); Anion Gap 14 mmol/L (10-20); BUN (Urea Nitrogen) 40 mg/dL (8.4-25.7); Bilirubin, Total 5.3 mg/dL (0.2-1.2); Calc. Creatinine Clearance 44 mL/min (70-130); Calcium 7.4 mg/dL (7.8-10.44); Carbon Dioxide 25 mmol/L (23-31); Chloride 114 mmol/L (98-107); Estimated GFR 37; Globulin 2.2 g/dL (2.4-3.5); Glucose 159 mg/dL (80-115); Lipase 220 U/L (8-78); Magnesium 1.8 mg/dL (1.6-2.6); Phosphorus 2.1 mg/dL (2.3-4.7); Potassium 3.1 mmol/L (3.5-5.1); Protein, Total 5.6 g/dL (5.8-8.1); Sodium 150 mmol/L (136-145)
[2024-01-06 10:14] LABS: EBV VCA IgM <36.0 U/mL (0.0-35.9)
[2024-01-06] MEDS: Pantoprazole 40 MG VIAL IVP SCH (13:46)
[2024-01-06 13:48] LABS: ANA Symphony (Qualitative) Negative (Negative); ANA Symphony (Quantitative) 0.2 Ratio (< 0.7 Negative); EliA Vaculitis New Method **** NEW METHOD ****; Mitochondrial Ab 0.8 U/mL (<4 Negative)
[2024-01-06] MEDS: Potassium Chloride 20 MEQ in Premix 1 BAG IVPB SCH (14:18)
[2024-01-06] MEDS: Albumin 25% 25 GM (100 mL) BOT IVPB SCH (14:18)
[2024-01-06] MEDS: Sodium Chloride 0.45% 1,000 ML IV SCH (14:19)
[2024-01-06] MEDS ORDERED: Sincalide 5 MCG VIAL ONE (17:00)
[2024-01-07] MEDS: Morphine 2 MG/ML VIAL SLOW IVP SCH (02:57)
[2024-01-07] MEDS: Simethicone Chewable 80 MG TAB PO PRN (02:57)
[2024-01-07 04:55] LABS: #Monocytes 0.8 thou/uL (0.11-0.59); #Neutrophils 9.1 thou/uL (1.40-6.50); %Basophils 0.4 % (0.0-1.0); %Eosinophils 0.2 % (0.0-10.0); %Lymphocytes 9.6 % (21.0-51.0); %Monocytes 7.1 % (0.0-10.0); %Neutrophils 82.3 % (42.0-75.0); Hematocrit 41.6 % (42.0-52.0); Hemoglobin 14.8 g/dL (14.0-18.0); Mean Corpuscular HGB CONC 35.6 g/dL (32.0-36.0); Mean Corpuscular Hemoglobin 30.8 pg (27.0-31.0); Mean Corpuscular Volume 86.5 fl (78.0-98.0); Mean Platelet Volume 11.8 fL (7.4-10.4); Platelet Count 170 10x3/uL (130-400); RBC Distribution Width 14.9 % (11.5-14.5); Red Blood Cell (RBC) Count 4.81 mill/uL (4.70-6.10)
[2024-01-07 05:41] LABS: ALT (SGPT) 650 U/L (8-55); AST (SGOT) 682 U/L (5-34); Alkaline Phosphatase 795 U/L (40-110); Anion Gap 13 mmol/L (10-20); BUN (Urea Nitrogen) 49 mg/dL (8.4-25.7); Bilirubin, Total 5.4 mg/dL (0.2-1.2); Calc. Creatinine Clearance 54 mL/min (70-130); Calcium 8.3 mg/dL (7.8-10.44); Carbon Dioxide 23 mmol/L (23-31); Chloride 116 mmol/L (98-107); Estimated GFR 47; Globulin 2.1 g/dL (2.4-3.5); Glucose 191 mg/dL (80-115); Potassium 3.2 mmol/L (3.5-5.1); Protein, Total 6.1 g/dL (5.8-8.1); Sodium 149 mmol/L (136-145)
[2024-01-07] MEDS: Potassium Chloride 20 MEQ in Premix 1 BAG IVPB SCH (09:31)
[2024-01-07] MEDS: Sodium Chloride 0.45% 1,000 ML IV SCH (09:35)
[2024-01-07] MEDS ORDERED: Iopamidol 15 ML ONE ×2 (14:48→16:10)
[2024-01-07] MEDS ORDERED: Bupivacaine PF 0.5% 30 ML VIAL ONE (14:48)
[2024-01-07] MEDS ORDERED: Iopamidol 0 ML FS ONE (14:48)
[2024-01-07] MEDS ORDERED: EPINEPHrine 1 MG/ML VIAL ONE (14:48)
[2024-01-07] MEDS ORDERED: Lidocaine 1% PF 5 ML VIAL ONE (14:52)
[2024-01-07] MEDS ORDERED: Rocuronium Bromide 10 MG/ML (10ML VIAL) ONE (14:52)
[2024-01-07] MEDS ORDERED: Ondansetron PF 4 MG/2 ML Vial ONE (14:52)
[2024-01-07] MEDS ORDERED: SUCCINYLCHOLINE/SOD CL,ISO/PF 200 MG/10 ML SYRINGE FS ONE (14:52)
[2024-01-07] MEDS ORDERED: PROPOFOL 20 ML ONE (14:52)
[2024-01-07] MEDS ORDERED: fentaNYL PF 100 MCG/2 ML SYRINGE ONE (14:54)
[2024-01-07] MEDS ORDERED: Ondansetron HCl/PF 4 MG/2 ML Vial IVP PRN (15:00)
[2024-01-07] MEDS ORDERED: HYDROmorphone 2 MG/ML VIAL SLOW IVP PRN (15:00)
[2024-01-07] MEDS ORDERED: Promethazine HCl 25 MG/ML VIAL IM PRN (15:00)
[2024-01-07] MEDS ORDERED: Meperidine HCl/PF 25 MG/ML VIAL SLOW IVP PRN (15:00)
[2024-01-07] MEDS ORDERED: Morphine Sulfate 2 MG/ML SYRINGE SLOW IVP PRN (15:00)
[2024-01-07] MEDS ORDERED: Dexamethasone 4 mg/ml Vial ONE (15:04)
[2024-01-07] MEDS ORDERED: Glucagon 1 MG/ML KIT ONE (15:48)
[2024-01-07] MEDS ORDERED: PHENYLEPHRINE-NS 100 MCG/ML 10 ML SYRINGE ONE (15:53)
[2024-01-07] MEDS ORDERED: ePHEDrine Sulfate 50 MG/10 ML VIAL ONE (15:54)
[2024-01-07] MEDS ORDERED: NEOSTIGMINE 3 MG/3 ML SYR 3 MG/3 ML SYRINGE ONE (16:24)
[2024-01-07] MEDS ORDERED: Glycopyrrolate 0.2 MG/ML 5 ML SYRINGE ONE (16:24)
[2024-01-07] MEDS ORDERED: SUGAMMADEX SODIUM 200 MG/2 ML VIAL ONE ×2 (16:31→16:38)
[2024-01-08 06:24] LABS: #Monocytes 0.6 thou/uL (0.11-0.59); #Neutrophils 7.1 thou/uL (1.40-6.50); %Basophils 0.1 % (0.0-1.0); %Lymphocytes 9.4 % (21.0-51.0); %Monocytes 6.9 % (0.0-10.0); %Neutrophils 83.2 % (42.0-75.0); Hematocrit 35.7 % (42.0-52.0); Hemoglobin 12.7 g/dL (14.0-18.0); Mean Corpuscular HGB CONC 35.6 g/dL (32.0-36.0); Mean Corpuscular Hemoglobin 30.2 pg (27.0-31.0); Mean Corpuscular Volume 84.8 fl (78.0-98.0); Platelet Count 150 10x3/uL (130-400); RBC Distribution Width 15.1 % (11.5-14.5); Red Blood Cell (RBC) Count 4.21 mill/uL (4.70-6.10); White Blood Cell (WBC) Count 8.5 10x3/uL (4.8-10.8)
[2024-01-08] MEDS: Morphine 4 MG/ML VIAL SLOW IVP PRN (06:28)
[2024-01-08 08:12] LABS: ALT (SGPT) 401 U/L (8-55); AST (SGOT) 354 U/L (5-34); Alkaline Phosphatase 637 U/L (40-110); Anion Gap 9 mmol/L (10-20); BUN (Urea Nitrogen) 49 mg/dL (8.4-25.7); Bilirubin, Total 2.9 mg/dL (0.2-1.2); Calc. Creatinine Clearance 62 mL/min (70-130); Calcium 7.6 mg/dL (7.8-10.44); Carbon Dioxide 22 mmol/L (23-31); Chloride 114 mmol/L (98-107); Estimated GFR 50; Globulin 1.9 g/dL (2.4-3.5); Glucose 286 mg/dL (80-115); Potassium 3.4 mmol/L (3.5-5.1); Protein, Total 4.9 g/dL (5.8-8.1); Sodium 142 mmol/L (136-145)
[2024-01-08] MEDS: Potassium Chloride 20 MEQ in Premix 1 BAG IVPB SCH (12:11)
[2024-01-08] MEDS: Sodium Chloride 0.45% 1,000 ML IV SCH (12:12)
[2024-01-09 06:11] LABS: ALT (SGPT) 315 U/L (8-55); AST (SGOT) 196 U/L (5-34); Albumin 2.9 g/dL (3.4-4.8); Alkaline Phosphatase 543 U/L (40-110); Anion Gap 8 mmol/L (10-20); BUN (Urea Nitrogen) 45 mg/dL (8.4-25.7); Bilirubin, Total 2.3 mg/dL (0.2-1.2); Calc. Creatinine Clearance 74 mL/min (70-130); Calcium 7.6 mg/dL (7.8-10.44); Carbon Dioxide 24 mmol/L (23-31); Chloride 111 mmol/L (98-107); Estimated GFR 60; Glucose 250 mg/dL (80-115); Potassium 3.5 mmol/L (3.5-5.1); Protein, Total 4.9 g/dL (5.8-8.1); Sodium 139 mmol/L (136-145)
[2024-01-09] MEDS: Furosemide 40 MG (4 mL) VIAL SLOW IVP SCH (09:36)
[2024-01-09] MEDS: Meropenem 1 GM in Sodium Chloride 0.9% 100 ML IVPB SCH (09:36)
[2024-01-09] MEDS: Potassium Chloride 20 MEQ TAB PO SCH (12:41)
[2024-01-09] MEDS ORDERED: VANCOMYCIN IVPB PRN (13:13)
[2024-01-09] MEDS: Vancomycin (BATCH) 1.5 GM in Premix 1 BAG IVPB SCH (14:17)
[2024-01-09] MEDS: Acetaminophen 500 MG TAB PO SCH (14:22)
[2024-01-09] MEDS: Ipratropium/Albuterol 3 ML NEB NEB SCH (14:49)
[2024-01-09] MEDS: Ipratropium/Albuterol 3 ML NEB NEB PRN (20:08)
[2024-01-10] MEDS: Vancomycin HCl 750 MG in Sodium Chloride 0.9% 250 ML 250 ML IVPB SCH (01:38)
[2024-01-10 07:31] LABS: ALT (SGPT) 231 U/L (8-55); AST (SGOT) 122 U/L (5-34); Albumin 2.9 g/dL (3.4-4.8); Alkaline Phosphatase 509 U/L (40-110); Anion Gap 11 mmol/L (10-20); BUN (Urea Nitrogen) 40 mg/dL (8.4-25.7); Bilirubin, Total 2.7 mg/dL (0.2-1.2); Calc. Creatinine Clearance 82 mL/min (70-130); Calcium 7.9 mg/dL (7.8-10.44); Carbon Dioxide 19 mmol/L (23-31); Chloride 112 mmol/L (98-107); Estimated GFR 68; Globulin 2.2 g/dL (2.4-3.5); Glucose 184 mg/dL (80-115); Potassium 3.5 mmol/L (3.5-5.1); Protein, Total 5.1 g/dL (5.8-8.1); Sodium 138 mmol/L (136-145)
[2024-01-10] MEDS: Polyethylene Glycol 3350 17 GM Packet PO SCH (08:32)
[2024-01-10 09:20] LABS: #Basophils 0.1 thou/uL (0.0-0.2); #Eosinphils 0.3 thou/uL (0.0-0.7); #Monocytes 1.3 thou/uL (0.11-0.59); #Neutrophils 10.6 thou/uL (1.40-6.50); %Basophils 0.4 % (0.0-1.0); %Eosinophils 2.5 % (0.0-10.0); %Lymphocytes 9.2 % (21.0-51.0); %Monocytes 9.5 % (0.0-10.0); %Neutrophils 77.8 % (42.0-75.0); Hematocrit 35.2 % (42.0-52.0); Hemoglobin 12.2 g/dL (14.0-18.0); Mean Corpuscular HGB CONC 34.7 g/dL (32.0-36.0); Mean Corpuscular Hemoglobin 30.3 pg (27.0-31.0); Mean Corpuscular Volume 87.3 fl (78.0-98.0); Mean Platelet Volume 12.1 fL (7.4-10.4); Platelet Count 171 10x3/uL (130-400); RBC Distribution Width 15.5 % (11.5-14.5); Red Blood Cell (RBC) Count 4.03 mill/uL (4.70-6.10); White Blood Cell (WBC) Count 13.6 10x3/uL (4.8-10.8)
[2024-01-10] MEDS: Potassium Chloride 20 MEQ TAB PO SCH (11:52)
[2024-01-10] MEDS ORDERED: hydrALAZINE 20 MG/ML VIAL SLOW IVP PRN (12:31)
[2024-01-10] MEDS: Furosemide 40 MG (4 mL) VIAL SLOW IVP SCH (12:43)
[2024-01-10] MEDS: Acetaminophen 500 MG TAB PO PRN (12:48)
[2024-01-10] MEDS: hydrALAZINE 20 MG/ML VIAL SLOW IVP PRN (20:37)
[2024-01-11 01:39] LABS: Vancomycin, Trough 11.5 ug/mL
[2024-01-11] MEDS: Vancomycin 1 GM in Premix 1 BAG IVPB SCH (02:11)
[2024-01-11 04:58] LABS: #Eosinphils 0.2 thou/uL (0.0-0.7); #Neutrophils 8.6 thou/uL (1.40-6.50); %Basophils 0.2 % (0.0-1.0); %Eosinophils 1.4 % (0.0-10.0); %Monocytes 9.4 % (0.0-10.0); %Neutrophils 78.4 % (42.0-75.0); Hematocrit 30.8 % (42.0-52.0); Hemoglobin 10.9 g/dL (14.0-18.0); Mean Corpuscular HGB CONC 35.4 g/dL (32.0-36.0); Mean Corpuscular Hemoglobin 30.4 pg (27.0-31.0); Mean Platelet Volume 11.6 fL (7.4-10.4); Platelet Count 181 10x3/uL (130-400); RBC Distribution Width 15.1 % (11.5-14.5); Red Blood Cell (RBC) Count 3.58 mill/uL (4.70-6.10)
[2024-01-11 05:24] LABS: ALT (SGPT) 195 U/L (8-55); AST (SGOT) 97 U/L (5-34); Albumin 2.8 g/dL (3.4-4.8); Alkaline Phosphatase 469 U/L (40-110); Anion Gap 11 mmol/L (10-20); BUN (Urea Nitrogen) 35 mg/dL (8.4-25.7); Bilirubin, Total 1.9 mg/dL (0.2-1.2); Calc. Creatinine Clearance 78 mL/min (70-130); Carbon Dioxide 23 mmol/L (23-31); Chloride 107 mmol/L (98-107); Estimated GFR 64; Globulin 2.4 g/dL (2.4-3.5); Glucose 302 mg/dL (80-115); Potassium 3.4 mmol/L (3.5-5.1); Protein, Total 5.2 g/dL (5.8-8.1); Sodium 138 mmol/L (136-145)
[2024-01-11] MEDS: Furosemide 20 MG TAB PO SCH (09:57)
[2024-01-11] MEDS ORDERED: Potassium Chloride 20 MEQ TAB PO SCH (13:00)
[2024-01-11] MEDS: Potassium Chloride 20 MEQ in Premix 1 BAG IVPB SCH (16:59)
[2024-01-11] MEDS: Carvedilol 6.25 MG TAB PO SCH (17:07)
[2024-01-12 07:21] LABS: #Eosinphils 0.2 thou/uL (0.0-0.7); #Neutrophils 9.5 thou/uL (1.40-6.50); %Basophils 0.2 % (0.0-1.0); %Eosinophils 1.8 % (0.0-10.0); %Lymphocytes 9.8 % (21.0-51.0); %Monocytes 8.6 % (0.0-10.0); %Neutrophils 79.1 % (42.0-75.0); Hematocrit 29.5 % (42.0-52.0); Hemoglobin 10.2 g/dL (14.0-18.0); Mean Corpuscular HGB CONC 34.6 g/dL (32.0-36.0); Mean Corpuscular Hemoglobin 30.7 pg (27.0-31.0); Mean Corpuscular Volume 88.9 fl (78.0-98.0); Mean Platelet Volume 11.6 fL (7.4-10.4); Platelet Count 204 10x3/uL (130-400); RBC Distribution Width 15.4 % (11.5-14.5); Red Blood Cell (RBC) Count 3.32 mill/uL (4.70-6.10)
[2024-01-12 08:21] LABS: ALT (SGPT) 145 U/L (8-55); AST (SGOT) 67 U/L (5-34); Albumin 2.7 g/dL (3.4-4.8); Alkaline Phosphatase 429 U/L (40-110); Anion Gap 12 mmol/L (10-20); BUN (Urea Nitrogen) 28 mg/dL (8.4-25.7); Bilirubin, Total 1.8 mg/dL (0.2-1.2); Calc. Creatinine Clearance 77 mL/min (70-130); Carbon Dioxide 21 mmol/L (23-31); Chloride 107 mmol/L (98-107); Estimated GFR 62; Globulin 2.4 g/dL (2.4-3.5); Glucose 273 mg/dL (80-115); Potassium 3.7 mmol/L (3.5-5.1); Protein, Total 5.1 g/dL (5.8-8.1); Sodium 136 mmol/L (136-145)
[2024-01-12] MEDS: glipiZIDE 10 MG TAB PO SCH (08:39)
[2024-01-12] MEDS ORDERED: Iopamidol-370 76% 500 ML MDV (1 ML CHARGE) ONE (14:01)
[2024-01-12] MEDS: Metoclopramide HCl 10 MG (2 mL) VIAL IVP PRN (21:31)
[2024-01-13] MEDS: Albumin 25% 25 GM (100 mL) BOT IVPB SCH (00:28)
[2024-01-13 06:51] LABS: #Eosinphils 0.2 thou/uL (0.0-0.7); #Monocytes 0.9 thou/uL (0.11-0.59); #Neutrophils 9.4 thou/uL (1.40-6.50); %Basophils 0.3 % (0.0-1.0); %Eosinophils 1.7 % (0.0-10.0); %Lymphocytes 9.7 % (21.0-51.0); %Monocytes 7.5 % (0.0-10.0); %Neutrophils 80.4 % (42.0-75.0); Hematocrit 25.8 % (42.0-52.0); Hemoglobin 8.9 g/dL (14.0-18.0); Mean Corpuscular HGB CONC 34.5 g/dL (32.0-36.0); Mean Corpuscular Hemoglobin 30.4 pg (27.0-31.0); Mean Corpuscular Volume 88.1 fl (78.0-98.0); Mean Platelet Volume 11.5 fL (7.4-10.4); Platelet Count 200 10x3/uL (130-400); RBC Distribution Width 15.3 % (11.5-14.5); Red Blood Cell (RBC) Count 2.93 mill/uL (4.70-6.10); White Blood Cell (WBC) Count 11.7 10x3/uL (4.8-10.8)
[2024-01-13 07:06] LABS: INR-International Normal Ratio 1.1; Prothrombin Time 13.7 sec (12.0-14.7)
[2024-01-13 07:07] LABS: PTT 42.3 sec (22.9-36.1)
[2024-01-13 07:18] LABS: ALT (SGPT) 108 U/L (8-55); AST (SGOT) 53 U/L (5-34); Albumin 3.3 g/dL (3.4-4.8); Alkaline Phosphatase 391 U/L (40-110); Anion Gap 11 mmol/L (10-20); BUN (Urea Nitrogen) 25 mg/dL (8.4-25.7); Bilirubin, Total 1.8 mg/dL (0.2-1.2); Calc. Creatinine Clearance 76 mL/min (70-130); Calcium 7.9 mg/dL (7.8-10.44); Carbon Dioxide 25 mmol/L (23-31); Chloride 104 mmol/L (98-107); Estimated GFR 59; Glucose 235 mg/dL (80-115); Lipase 64 U/L (8-78); Potassium 3.2 mmol/L (3.5-5.1); Protein, Total 5.3 g/dL (5.8-8.1); Sodium 137 mmol/L (136-145)
[2024-01-13] MEDS ORDERED: Insulin Glargine 30 UNITS/0.3 ML VIAL SC SCH (09:00)
[2024-01-13] MEDS: Potassium Chloride 20 MEQ TAB PO SCH (11:53)
[2024-01-13 13:54] LABS: #Basophils 0.1 thou/uL (0.0-0.2); #Eosinphils 0.2 thou/uL (0.0-0.7); %Basophils 0.3 % (0.0-1.0); %Eosinophils 1.6 % (0.0-10.0); %Lymphocytes 7.9 % (21.0-51.0); %Neutrophils 82.6 % (42.0-75.0); Hematocrit 26.9 % (42.0-52.0); Hemoglobin 9.3 g/dL (14.0-18.0); Mean Corpuscular HGB CONC 34.6 g/dL (32.0-36.0); Mean Corpuscular Volume 89.7 fl (78.0-98.0); Mean Platelet Volume 11.5 fL (7.4-10.4); Platelet Count 215 10x3/uL (130-400); RBC Distribution Width 15.2 % (11.5-14.5); White Blood Cell (WBC) Count 14.5 10x3/uL (4.8-10.8)
[2024-01-13 14:16] LABS: Anion Gap 11 mmol/L (10-20); BUN (Urea Nitrogen) 24 mg/dL (8.4-25.7); Calc. Creatinine Clearance 76 mL/min (70-130); Carbon Dioxide 24 mmol/L (23-31); Chloride 104 mmol/L (98-107); Estimated GFR 59; Glucose 252 mg/dL (80-115); Magnesium 1.8 mg/dL (1.6-2.6); Potassium 3.4 mmol/L (3.5-5.1); Sodium 136 mmol/L (136-145)
[2024-01-14 07:25] LABS: #Eosinphils 0.2 thou/uL (0.0-0.7); #Monocytes 0.8 thou/uL (0.11-0.59); #Neutrophils 10.3 thou/uL (1.40-6.50); %Basophils 0.3 % (0.0-1.0); %Eosinophils 1.4 % (0.0-10.0); %Lymphocytes 8.9 % (21.0-51.0); %Monocytes 6.5 % (0.0-10.0); %Neutrophils 82.2 % (42.0-75.0); Hematocrit 25.4 % (42.0-52.0); Hemoglobin 8.8 g/dL (14.0-18.0); Mean Corpuscular HGB CONC 34.6 g/dL (32.0-36.0); Mean Corpuscular Hemoglobin 31.1 pg (27.0-31.0); Mean Corpuscular Volume 89.8 fl (78.0-98.0); Mean Platelet Volume 11.6 fL (7.4-10.4); Platelet Count 224 10x3/uL (130-400); RBC Distribution Width 15.2 % (11.5-14.5); Red Blood Cell (RBC) Count 2.83 mill/uL (4.70-6.10); White Blood Cell (WBC) Count 12.5 10x3/uL (4.8-10.8)
[2024-01-14 07:46] LABS: ALT (SGPT) 77 U/L (8-55); AST (SGOT) 31 U/L (5-34); Albumin 3.4 g/dL (3.4-4.8); Alkaline Phosphatase 361 U/L (40-110); Anion Gap 13 mmol/L (10-20); BUN (Urea Nitrogen) 24 mg/dL (8.4-25.7); Bilirubin, Total 2.1 mg/dL (0.2-1.2); Calc. Creatinine Clearance 74 mL/min (70-130); Calcium 8.3 mg/dL (7.8-10.44); Carbon Dioxide 22 mmol/L (23-31); Chloride 103 mmol/L (98-107); Estimated GFR 57; Globulin 2.2 g/dL (2.4-3.5); Glucose 323 mg/dL (80-115); Potassium 3.4 mmol/L (3.5-5.1); Protein, Total 5.6 g/dL (5.8-8.1); Sodium 135 mmol/L (136-145)
[2024-01-14] MEDS: Furosemide 40 MG (4 mL) VIAL SLOW IVP SCH (10:13)
[2024-01-14 16:36] LABS: Hemoglobin 9.7 g/dL (14.0-18.0)
[2024-01-14] MEDS: Potassium Chloride 20 MEQ TAB PO SCH (16:50)
[2024-01-14] MEDS: traMADol HCl 50 MG TAB PO PRN (20:34)
[2024-01-14] MEDS: Insulin Glargine 30 UNITS/0.3 ML VIAL SC SCH (20:38)
[2024-01-15 07:58] LABS: #Eosinphils 0.2 thou/uL (0.0-0.7); #Monocytes 0.8 thou/uL (0.11-0.59); #Neutrophils 11.2 thou/uL (1.40-6.50); %Basophils 0.3 % (0.0-1.0); %Eosinophils 1.2 % (0.0-10.0); %Monocytes 5.8 % (0.0-10.0); Hematocrit 28.5 % (42.0-52.0); Hemoglobin 9.9 g/dL (14.0-18.0); Mean Corpuscular HGB CONC 34.7 g/dL (32.0-36.0); Mean Corpuscular Hemoglobin 30.2 pg (27.0-31.0); Mean Corpuscular Volume 86.9 fl (78.0-98.0); Mean Platelet Volume 11.3 fL (7.4-10.4); Platelet Count 272 10x3/uL (130-400); RBC Distribution Width 14.6 % (11.5-14.5); Red Blood Cell (RBC) Count 3.28 mill/uL (4.70-6.10); White Blood Cell (WBC) Count 13.6 10x3/uL (4.8-10.8)
[2024-01-15 08:18] LABS: ALT (SGPT) 65 U/L (8-55); AST (SGOT) 26 U/L (5-34); Albumin 3.3 g/dL (3.4-4.8); Alkaline Phosphatase 366 U/L (40-110); Anion Gap 13 mmol/L (10-20); BUN (Urea Nitrogen) 20 mg/dL (8.4-25.7); Calc. Creatinine Clearance 68 mL/min (70-130); Calcium 8.5 mg/dL (7.8-10.44); Carbon Dioxide 27 mmol/L (23-31); Chloride 98 mmol/L (98-107); Estimated GFR 56; Globulin 2.3 g/dL (2.4-3.5); Glucose 302 mg/dL (80-115); Magnesium 1.8 mg/dL (1.6-2.6); Potassium 2.8 mmol/L (3.5-5.1); Protein, Total 5.6 g/dL (5.8-8.1); Sodium 135 mmol/L (136-145)
[2024-01-15] MEDS: Insulin Glargine 30 UNITS/0.3 ML VIAL SC SCH ×2 (09:06→20:33)
[2024-01-15] MEDS: Potassium Chloride 20 MEQ TAB PO SCH (09:06)
[2024-01-15 11:43] LABS: Hepatitis E Virus IgG ABS 0.011
[2024-01-16 05:24] LABS: #Basophils 0.1 thou/uL (0.0-0.2); #Eosinphils 0.2 thou/uL (0.0-0.7); #Monocytes 0.9 thou/uL (0.11-0.59); #Neutrophils 8.2 thou/uL (1.40-6.50); %Basophils 0.5 % (0.0-1.0); %Eosinophils 1.4 % (0.0-10.0); %Lymphocytes 14.7 % (21.0-51.0); %Monocytes 7.8 % (0.0-10.0); %Neutrophils 75.1 % (42.0-75.0); Hematocrit 26.3 % (42.0-52.0); Hemoglobin 9.2 g/dL (14.0-18.0); Mean Corpuscular Hemoglobin 30.7 pg (27.0-31.0); Mean Corpuscular Volume 87.7 fl (78.0-98.0); Mean Platelet Volume 11.1 fL (7.4-10.4); Platelet Count 279 10x3/uL (130-400); RBC Distribution Width 14.5 % (11.5-14.5); White Blood Cell (WBC) Count 10.8 10x3/uL (4.8-10.8)
[2024-01-16 05:48] LABS: ALT (SGPT) 53 U/L (8-55); AST (SGOT) 26 U/L (5-34); Albumin 2.9 g/dL (3.4-4.8); Alkaline Phosphatase 341 U/L (40-110); Anion Gap 10 mmol/L (10-20); BUN (Urea Nitrogen) 19 mg/dL (8.4-25.7); Calc. Creatinine Clearance 76 mL/min (70-130); Calcium 8.1 mg/dL (7.8-10.44); Carbon Dioxide 29 mmol/L (23-31); Chloride 100 mmol/L (98-107); Estimated GFR 62; Globulin 2.3 g/dL (2.4-3.5); Glucose 232 mg/dL (80-115); Potassium 2.9 mmol/L (3.5-5.1); Protein, Total 5.2 g/dL (5.8-8.1); Sodium 136 mmol/L (136-145)
[2024-01-16] MEDS: Insulin Glargine 30 UNITS/0.3 ML VIAL SC SCH (08:24)
[2024-01-16] MEDS: Potassium Chloride 20 MEQ TAB PO SCH (11:04)
[2024-01-16] MEDS: Furosemide 40 MG (4 mL) VIAL SLOW IVP SCH (12:06)
[2024-01-16] MEDS: Atorvastatin Calcium 40 MG TAB PO SCH (20:20)
[2024-01-17 06:03] LABS: Anion Gap 9 mmol/L (10-20); BUN (Urea Nitrogen) 16 mg/dL (8.4-25.7); Calc. Creatinine Clearance 76 mL/min (70-130); Calcium 8.1 mg/dL (7.8-10.44); Carbon Dioxide 34 mmol/L (23-31); Chloride 98 mmol/L (98-107); Estimated GFR 64; Glucose 181 mg/dL (80-115); Sodium 138 mmol/L (136-145)
[2024-01-17] MEDS: Furosemide 40 MG (4 mL) VIAL SLOW IVP SCH (06:03)
[2024-01-17] MEDS: Meropenem 1 GM in Sodium Chloride 0.9% 100 ML IVPB SCH (13:16)
[2024-01-18 07:01] LABS: #Basophils 0.1 thou/uL (0.0-0.2); #Eosinphils 0.3 thou/uL (0.0-0.7); #Monocytes 0.8 thou/uL (0.11-0.59); #Neutrophils 7.7 thou/uL (1.40-6.50); %Basophils 0.8 % (0.0-1.0); %Eosinophils 2.5 % (0.0-10.0); %Lymphocytes 14.9 % (21.0-51.0); %Monocytes 7.8 % (0.0-10.0); %Neutrophils 73.6 % (42.0-75.0); Hematocrit 28.9 % (42.0-52.0); Hemoglobin 9.8 g/dL (14.0-18.0); Mean Corpuscular HGB CONC 33.9 g/dL (32.0-36.0); Mean Corpuscular Hemoglobin 30.1 pg (27.0-31.0); Mean Corpuscular Volume 88.7 fl (78.0-98.0); Platelet Count 328 10x3/uL (130-400); RBC Distribution Width 14.6 % (11.5-14.5); Red Blood Cell (RBC) Count 3.26 mill/uL (4.70-6.10); White Blood Cell (WBC) Count 10.5 10x3/uL (4.8-10.8)
[2024-01-18 07:12] LABS: Anion Gap 8 mmol/L (10-20); BUN (Urea Nitrogen) 17 mg/dL (8.4-25.7); Calc. Creatinine Clearance 78 mL/min (70-130); Calcium 8.2 mg/dL (7.8-10.44); Carbon Dioxide 36 mmol/L (23-31); Chloride 93 mmol/L (98-107); Estimated GFR 69; Glucose 199 mg/dL (80-115); Potassium 2.9 mmol/L (3.5-5.1); Sodium 134 mmol/L (136-145)
[2024-01-18] MEDS: Potassium Chloride 20 MEQ TAB PO SCH (09:04)
[2024-01-19 05:32] LABS: Hematocrit 27.1 % (42.0-52.0); Hemoglobin 9.2 g/dL (14.0-18.0); Mean Corpuscular HGB CONC 33.9 g/dL (32.0-36.0); Mean Corpuscular Hemoglobin 30.5 pg (27.0-31.0); Mean Corpuscular Volume 89.7 fl (78.0-98.0); Mean Platelet Volume 10.7 fL (7.4-10.4); Platelet Count 313 10x3/uL (130-400); RBC Distribution Width 14.8 % (11.5-14.5); Red Blood Cell (RBC) Count 3.02 mill/uL (4.70-6.10); White Blood Cell (WBC) Count 11.5 10x3/uL (4.8-10.8)
[2024-01-19 05:33] LABS: #Basophils 0.1 thou/uL (0.0-0.2); #Eosinphils 0.2 thou/uL (0.0-0.7); #Monocytes 1.1 thou/uL (0.11-0.59); #Neutrophils 8.7 thou/uL (1.40-6.50); %Basophils 0.7 % (0.0-1.0); %Eosinophils 1.7 % (0.0-10.0); %Lymphocytes 12.7 % (21.0-51.0); %Monocytes 9.2 % (0.0-10.0); %Neutrophils 75.4 % (42.0-75.0)
[2024-01-19 05:48] LABS: Anion Gap 12 mmol/L (10-20); BUN (Urea Nitrogen) 17 mg/dL (8.4-25.7); Calc. Creatinine Clearance 71 mL/min (70-130); Calcium 8.2 mg/dL (7.8-10.44); Carbon Dioxide 31 mmol/L (23-31); Chloride 96 mmol/L (98-107); Estimated GFR 61; Glucose 243 mg/dL (80-115); Potassium 3.9 mmol/L (3.5-5.1); Sodium 135 mmol/L (136-145)
[2024-01-19] MEDS: Insulin Glargine 30 UNITS/0.3 ML VIAL SC SCH ×2 (12:24→20:57)
[2024-01-19] MEDS: Carvedilol 6.25 MG TAB PO SCH (17:50)
[2024-01-19] MEDS: Sacubitril 24MG/Valsartan 26 MG TAB PO SCH (20:56)
[2024-01-20 05:07] LABS: #Basophils 0.1 thou/uL (0.0-0.2); #Eosinphils 0.3 thou/uL (0.0-0.7); #Monocytes 0.8 thou/uL (0.11-0.59); #Neutrophils 7.4 thou/uL (1.40-6.50); %Basophils 0.6 % (0.0-1.0); %Eosinophils 2.9 % (0.0-10.0); %Lymphocytes 14.5 % (21.0-51.0); %Monocytes 7.7 % (0.0-10.0); Hematocrit 26.1 % (42.0-52.0); Mean Corpuscular HGB CONC 34.5 g/dL (32.0-36.0); Mean Corpuscular Hemoglobin 31.3 pg (27.0-31.0); Mean Corpuscular Volume 90.6 fl (78.0-98.0); Mean Platelet Volume 10.5 fL (7.4-10.4); Platelet Count 314 10x3/uL (130-400); RBC Distribution Width 14.6 % (11.5-14.5); Red Blood Cell (RBC) Count 2.88 mill/uL (4.70-6.10)
[2024-01-20 06:02] LABS: Anion Gap 12 mmol/L (10-20); BUN (Urea Nitrogen) 21 mg/dL (8.4-25.7); Calc. Creatinine Clearance 66 mL/min (70-130); Calcium 8.2 mg/dL (7.8-10.44); Carbon Dioxide 31 mmol/L (23-31); Chloride 97 mmol/L (98-107); Estimated GFR 55; Glucose 139 mg/dL (80-115); Potassium 3.5 mmol/L (3.5-5.1); Sodium 136 mmol/L (136-145)
[2024-01-20] MEDS: Metolazone 5 MG TAB PO SCH (08:17)
[2024-01-20] MEDS: Empagliflozin 10 MG TAB PO SCH (08:17)
[2024-01-21 05:43] LABS: #Basophils 0.1 thou/uL (0.0-0.2); #Eosinphils 0.3 thou/uL (0.0-0.7); #Monocytes 0.9 thou/uL (0.11-0.59); #Neutrophils 7.3 thou/uL (1.40-6.50); %Basophils 0.7 % (0.0-1.0); %Eosinophils 2.5 % (0.0-10.0); %Lymphocytes 15.4 % (21.0-51.0); %Monocytes 9.1 % (0.0-10.0); %Neutrophils 72.1 % (42.0-75.0); Hematocrit 28.1 % (42.0-52.0); Hemoglobin 9.4 g/dL (14.0-18.0); Mean Corpuscular HGB CONC 33.5 g/dL (32.0-36.0); Mean Corpuscular Hemoglobin 30.1 pg (27.0-31.0); Mean Corpuscular Volume 90.1 fl (78.0-98.0); Platelet Count 323 10x3/uL (130-400); RBC Distribution Width 14.6 % (11.5-14.5); Red Blood Cell (RBC) Count 3.12 mill/uL (4.70-6.10); White Blood Cell (WBC) Count 10.2 10x3/uL (4.8-10.8)
[2024-01-21 06:20] LABS: Anion Gap 14 mmol/L (10-20); BUN (Urea Nitrogen) 21 mg/dL (8.4-25.7); Calc. Creatinine Clearance 60 mL/min (70-130); Calcium 8.7 mg/dL (7.8-10.44); Carbon Dioxide 32 mmol/L (23-31); Chloride 94 mmol/L (98-107); Estimated GFR 52; Glucose 188 mg/dL (80-115); Potassium 3.4 mmol/L (3.5-5.1); Sodium 137 mmol/L (136-145)
[2024-01-21] MEDS ORDERED: Metolazone 5 MG TAB PO SCH (08:30)
[2024-01-21 14:12] VITALS: BMI 31.8
[2024-01-22 06:16] LABS: #Basophils 0.1 thou/uL (0.0-0.2); #Eosinphils 0.3 thou/uL (0.0-0.7); #Neutrophils 7.8 thou/uL (1.40-6.50); %Basophils 0.9 % (0.0-1.0); %Eosinophils 2.7 % (0.0-10.0); %Lymphocytes 15.7 % (21.0-51.0); %Monocytes 8.9 % (0.0-10.0); %Neutrophils 71.5 % (42.0-75.0); Hematocrit 30.9 % (42.0-52.0); Hemoglobin 10.5 g/dL (14.0-18.0); Mean Corpuscular Hemoglobin 30.3 pg (27.0-31.0); Mean Corpuscular Volume 89.3 fl (78.0-98.0); Mean Platelet Volume 10.5 fL (7.4-10.4); Platelet Count 416 10x3/uL (130-400); RBC Distribution Width 14.3 % (11.5-14.5); Red Blood Cell (RBC) Count 3.46 mill/uL (4.70-6.10)
[2024-01-22 06:45] LABS: Anion Gap 16 mmol/L (10-20); BUN (Urea Nitrogen) 22 mg/dL (8.4-25.7); Calc. Creatinine Clearance 62 mL/min (70-130); Carbon Dioxide 33 mmol/L (23-31); Chloride 95 mmol/L (98-107); Estimated GFR 56; Glucose 72 mg/dL (80-115); Potassium 3.2 mmol/L (3.5-5.1); Sodium 141 mmol/L (136-145)
[2024-01-22] MEDS: Potassium Chloride 20 MEQ TAB PO SCH (11:08)
[2024-01-22] MEDS: Sacubitril 24MG/Valsartan 26 MG TAB PO SCH (20:17)
[2024-01-23 05:09] LABS: Anion Gap 14 mmol/L (10-20); BUN (Urea Nitrogen) 27 mg/dL (8.4-25.7); Calc. Creatinine Clearance 58 mL/min (70-130); Calcium 8.9 mg/dL (7.8-10.44); Carbon Dioxide 33 mmol/L (23-31); Chloride 96 mmol/L (98-107); Estimated GFR 52; Glucose 78 mg/dL (80-115); Potassium 3.4 mmol/L (3.5-5.1); Sodium 140 mmol/L (136-145)
[2024-01-23] MEDS: Furosemide 40 MG TAB PO SCH (07:46)
[2024-01-23 07:49] VITALS: BP 126/78
[2024-01-23 07:50] VITALS: TEMP 98.1
[2024-01-23] MEDS: Potassium Chloride 20 MEQ TAB PO SCH (12:16)
== END 2024-01-23 13:19 | disposition home or self-care (01) | DRG 417 ==
LOC: ERS 08:08 → MSONC 13:47
PROVIDERS: ADMIT Internal Medicine; ATTEND Internal Medicine
PROC: 30233J1 Transfusion of Nonautologous Serum Albumin into Peripheral Vein, Percutaneous Approach (ICD-10-PCS; 2024-01-05)
PROC: 3E033XZ Introduction of Vasopressor into Peripheral Vein, Percutaneous Approach (ICD-10-PCS; 2024-01-05)
PROC: 0FT44ZZ Resection of Gallbladder, Percutaneous Endoscopic Approach (ICD-10-PCS; principal; 2024-01-07)
DX: K81.0 Acute cholecystitis (principal); I50.23 Acute on chronic systolic (congestive) heart failure; K72.00 Acute and subacute hepatic failure without coma; K85.90 Acute pancreatitis without necrosis or infection, unspecified; J18.9 Pneumonia, unspecified organism; E87.20 Acidosis, unspecified; N17.9 Acute kidney failure, unspecified; E87.1 Hypo-osmolality and hyponatremia; I13.0 Hypertensive heart and chronic kidney disease with heart failure and stage 1 through stage 4 chronic kidney disease, or unspecified chronic kidney disease; I25.10 Atherosclerotic heart disease of native coronary artery without angina pectoris; E11.65 Type 2 diabetes mellitus with hyperglycemia; R74.01 Elevation of levels of liver transaminase levels; R79.89 Other specified abnormal findings of blood chemistry; D72.829 Elevated white blood cell count, unspecified; I25.5 Ischemic cardiomyopathy; I48.91 Unspecified atrial fibrillation; N18.2 Chronic kidney disease, stage 2 (mild); E11.22 Type 2 diabetes mellitus with diabetic chronic kidney disease; E88.09 Other disorders of plasma-protein metabolism, not elsewhere classified; E87.6 Hypokalemia; G47.33 Obstructive sleep apnea (adult) (pediatric); Z95.1 Presence of aortocoronary bypass graft; Z79.4 Long term (current) use of insulin; Z79.899 Other long term (current) drug therapy; Z79.2 Long term (current) use of antibiotics; Z79.82 Long term (current) use of aspirin; Z79.84 Long term (current) use of oral hypoglycemic drugs; Z91.199 Patient's noncompliance with other medical treatment and regimen due to unspecified reason; Z87.891 Personal history of nicotine dependence
CPT/HCPCS: 36415; 36416; 47532; 71045; 74177; 74181; 76705; 76870; 78226; 80048; 80053; 80061; 80074; 80143; 80202; 80307; 81001; 82010; 82274; 82390; 82728; 83516; 83540; 83550; 83605; 83690; 83735; 83880; 84100; 84145; 85025; 85610; 85730; 86015; 86038; 86225; 86664; 86665; 86790; 87040; 87081; 88304; 93005; 93010; 93306; 93976; 94640; 96361; 96374; 96375; A9537; C1889; C9113; J0171; J0360; J0665; J1100; J1170; J1611; J1650; J1815; J1940; J2185; J2270; J2272; J2405; J2543; J2550; J2704; J2765; J2805; J3370; J3370-JW; J3480; J3490; J7050; J7620; P9047; Q0162; Q9966; Q9967

== ENCOUNTER 2024-08-18 16:03 | Outpatient (CLI) | payer MEDICARE | END 2024-08-18 16:04 | disposition home or self-care (01) | LOC: BICRAD 16:03 | PROVIDERS: ATTEND Nurse Practitioner Family | DX: M25.551 Pain in right hip (principal); M54.41 Lumbago with sciatica, right side; M47.816 Spondylosis without myelopathy or radiculopathy, lumbar region; S22.080A Wedge compression fracture of T11-T12 vertebra, initial encounter for closed fracture | CPT/HCPCS: 72100 ==

== ENCOUNTER 2025-09-19 00:04 | Inpatient (IN) | payer MEDICARE ==
[2025-09-19] MEDS ORDERED: Ondansetron PF 4 MG/2 ML Vial ONE (01:14)
[2025-09-19] MEDS ORDERED: Cefepime 2 GM VIAL ONE (01:14)
[2025-09-19] MEDS ORDERED: Vancomycin 1 GM/200 ML (FROZEN) BAG ONE (01:15)
[2025-09-19 01:34] LABS: ALT (SGPT) 44 U/L (Less than 45); AST (SGOT) 50 U/L (11-34); Albumin 3.5 g/dL (3.1-4.5); Alkaline Phosphatase 332 U/L (40-110); Anion Gap 15 mmol/L (10-20); BUN (Urea Nitrogen) 24 mg/dL (8.4-25.7); Bilirubin, Total 0.4 mg/dL (0.3-1.2); Calc. Creatinine Clearance 0 mL/min (70-130); Calcium 8.8 mg/dL (7.8-10.44); Carbon Dioxide 22 mmol/L (23-31); Chloride 102 mmol/L (98-107); Globulin 3.8 g/dL (2.4-3.5); Glucose 263 mg/dL (80-115); Potassium 5.3 mmol/L (3.5-5.1); Sodium 134 mmol/L (136-145)
[2025-09-19 01:58] LABS: #Basophils 0.13 10x3/uL (0.0-0.2); #Eosinophils 0.20 10x3/uL (0.0-0.7); #Monocytes 0.70 10x3/uL (0.11-0.59); #Neutrophils 7.79 10x3/uL (1.40-6.50); %Basophils 1.2 % (0.0-1.0); %Eosinophils 1.8 % (0.0-10.0); %Lymphocytes 20.3 % (21.0-51.0); %Monocytes 6.3 % (0.0-10.0); %Neutrophils 70.3 % (42.0-75.0); Hematocrit 37.4 % (42.0-52.0); Hemoglobin 12.9 g/dL (14.0-18.0); Mean Corpuscular Hemoglobin 30.6 pg (27.0-31.0); Mean Corpuscular Volume 88.6 fL (78.0-98.0); Platelet Count 204 10x3/uL (130-400); Red Blood Cell (RBC) Count 4.22 mill/uL (4.70-6.10); White Blood Cell (WBC) Count 11.08 10x3/uL (4.8-10.8)
[2025-09-19] MEDS ORDERED: Pharmacy to Dose VANC/CEFEPIME IVPB PRN (03:32)
[2025-09-19] MEDS ORDERED: Dextrose 50% Abboject 50 ML SYRINGE SLOW IVP PRN (03:35)
[2025-09-19] MEDS ORDERED: Glucagon 1 MG/ML KIT IM PRN (03:35)
[2025-09-19 05:23] VITALS: BMI 30.1
[2025-09-19] MEDS: glipiZIDE 10 MG TAB PO SCH (08:50)
[2025-09-19] MEDS: Pantoprazole 40 MG DR.TAB PO SCH (08:50)
[2025-09-19] MEDS: Insulin Glargine 30 UNITS/0.3 ML VIAL SC SCH (08:50)
[2025-09-19] MEDS: Senokot S 8.6-50 MG TAB PO SCH ×2 (10:12→21:32)
[2025-09-19] MEDS ORDERED: Iopamidol-370 76% 500 ML MDV (1 ML CHARGE) ONE (12:41)
[2025-09-19 13:14] LABS: Anion Gap 12 mmol/L (10-20); BUN (Urea Nitrogen) 20 mg/dL (8.4-25.7); Calc. Creatinine Clearance 103 mL/min (70-130); Calcium 8.9 mg/dL (7.8-10.44); Carbon Dioxide 24 mmol/L (23-31); Chloride 104 mmol/L (98-107); Glucose 165 mg/dL (80-115); Potassium 4.4 mmol/L (3.5-5.1); Sodium 136 mmol/L (136-145)
[2025-09-19] MEDS: Vancomycin 1 GM in Premix 1 BAG IVPB SCH (22:39)
[2025-09-20] MEDS ORDERED: Vancomycin 1.5 GM / NS 500ML VIAL-2-BAG IVPB SCH (01:00)
[2025-09-20 05:56] LABS: #Basophils 0.11 10x3/uL (0.0-0.2); #Eosinophils 0.26 10x3/uL (0.0-0.7); #Monocytes 0.70 10x3/uL (0.11-0.59); #Neutrophils 5.05 10x3/uL (1.40-6.50); %Basophils 1.3 % (0.0-1.0); %Eosinophils 3.1 % (0.0-10.0); %Lymphocytes 26.6 % (21.0-51.0); %Monocytes 8.4 % (0.0-10.0); %Neutrophils 60.4 % (42.0-75.0); Hematocrit 36.4 % (42.0-52.0); Hemoglobin 12.3 g/dL (14.0-18.0); Mean Corpuscular Hemoglobin 30.2 pg (27.0-31.0); Mean Corpuscular Volume 89.4 fL (78.0-98.0); Platelet Count 226 10x3/uL (130-400); Red Blood Cell (RBC) Count 4.07 mill/uL (4.70-6.10); White Blood Cell (WBC) Count 8.37 10x3/uL (4.8-10.8)
[2025-09-20 06:19] LABS: Vancomycin, Random 13.1 ug/mL (See Comment)
[2025-09-20 06:19] LABS: CRP, High Sensitivity at Bryan 5.15 mg/dL (< or = 0.5)
[2025-09-20 06:20] LABS: ALT (SGPT) 60 U/L (Less than 45); AST (SGOT) 52 U/L (11-34); Albumin 3.1 g/dL (3.1-4.5); Alkaline Phosphatase 342 U/L (40-110); Anion Gap 13 mmol/L (10-20); BUN (Urea Nitrogen) 19 mg/dL (8.4-25.7); Bilirubin, Total 0.5 mg/dL (0.3-1.2); Calc. Creatinine Clearance 83 mL/min (70-130); Calcium 8.7 mg/dL (7.8-10.44); Carbon Dioxide 23 mmol/L (23-31); Chloride 105 mmol/L (98-107); Globulin 3.2 g/dL (2.4-3.5); Glucose 95 mg/dL (80-115); Potassium 4.1 mmol/L (3.5-5.1); Sodium 137 mmol/L (136-145)
[2025-09-20] MEDS: Acetaminophen 325 MG TAB PO PRN (10:55)
[2025-09-20] MEDS: Carvedilol 3.125 MG TAB PO SCH (20:52)
[2025-09-20] MEDS: Sacubitril 24MG/Valsartan 26 MG TAB PO SCH (20:52)
[2025-09-21 05:37] LABS: #Basophils 0.10 10x3/uL (0.0-0.2); #Eosinophils 0.28 10x3/uL (0.0-0.7); #Monocytes 0.76 10x3/uL (0.11-0.59); #Neutrophils 6.48 10x3/uL (1.40-6.50); %Basophils 1.0 % (0.0-1.0); %Eosinophils 2.8 % (0.0-10.0); %Lymphocytes 24.0 % (21.0-51.0); %Monocytes 7.6 % (0.0-10.0); %Neutrophils 64.3 % (42.0-75.0); Hematocrit 40.5 % (42.0-52.0); Hemoglobin 13.6 g/dL (14.0-18.0); Mean Corpuscular Hemoglobin 29.8 pg (27.0-31.0); Mean Corpuscular Volume 88.8 fL (78.0-98.0); Platelet Count 268 10x3/uL (130-400); Red Blood Cell (RBC) Count 4.56 mill/uL (4.70-6.10); White Blood Cell (WBC) Count 10.06 10x3/uL (4.8-10.8)
[2025-09-21 05:50] LABS: Anion Gap 12 mmol/L (10-20); BUN (Urea Nitrogen) 16 mg/dL (8.4-25.7); Calc. Creatinine Clearance 78 mL/min (70-130); Calcium 9.6 mg/dL (7.8-10.44); Carbon Dioxide 23 mmol/L (23-31); Chloride 104 mmol/L (98-107); Glucose 236 mg/dL (80-115); Potassium 4.2 mmol/L (3.5-5.1); Sodium 135 mmol/L (136-145)
[2025-09-21] MEDS ORDERED: Iopamidol 370 76% 100 ML VIAL ONE (08:03)
[2025-09-21] MEDS: Acetaminophen/Codeine 30-300mg Tablet PO PRN (09:49)
[2025-09-21] MEDS ORDERED: hydrALAZINE 20 MG/ML VIAL SLOW IVP PRN (10:13)
[2025-09-21] MEDS ORDERED: Lidocaine 1% (PF) 30 ML VIAL ONE (10:18)
[2025-09-21] MEDS: NIFEdipine XL 30 MG ER.TAB PO SCH (11:41)
[2025-09-21] MEDS ORDERED: Heparin 10,000 UNITS/ 10 ML VIAL ONE ×2 (12:52→13:01)
[2025-09-22 08:17] LABS: #Basophils 0.09 10x3/uL (0.0-0.2); #Eosinophils 0.28 10x3/uL (0.0-0.7); #Monocytes 0.71 10x3/uL (0.11-0.59); #Neutrophils 4.83 10x3/uL (1.40-6.50); %Basophils 1.1 % (0.0-1.0); %Eosinophils 3.5 % (0.0-10.0); %Lymphocytes 26.0 % (21.0-51.0); %Monocytes 8.9 % (0.0-10.0); %Neutrophils 60.3 % (42.0-75.0); Hematocrit 34.7 % (42.0-52.0); Hemoglobin 11.7 g/dL (14.0-18.0); Mean Corpuscular Hemoglobin 30.0 pg (27.0-31.0); Mean Corpuscular Volume 89.0 fL (78.0-98.0); Platelet Count 238 10x3/uL (130-400); Red Blood Cell (RBC) Count 3.90 mill/uL (4.70-6.10); White Blood Cell (WBC) Count 8.01 10x3/uL (4.8-10.8)
[2025-09-22 08:23] LABS: Vancomycin, Random 27.8 ug/mL (See Comment)
[2025-09-22 08:28] LABS: Anion Gap 13 mmol/L (10-20); BUN (Urea Nitrogen) 19 mg/dL (8.4-25.7); Calc. Creatinine Clearance 75 mL/min (70-130); Calcium 8.8 mg/dL (7.8-10.44); Carbon Dioxide 23 mmol/L (23-31); Chloride 103 mmol/L (98-107); Glucose 235 mg/dL (80-115); Potassium 3.9 mmol/L (3.5-5.1); Sodium 135 mmol/L (136-145)
[2025-09-22] MEDS: NIFEdipine XL 30 MG ER.TAB PO SCH (09:08)
[2025-09-22] MEDS: Aspirin 81 mg Enteric Coated Tablet PO SCH (09:09)
[2025-09-22 18:02] VITALS: BP 147/63; TEMP 97.9
[2025-09-22] MEDS ORDERED: NIFEdipine XL 30 MG ER.TAB PO SCH (21:00)
== END 2025-09-22 17:32 | disposition home or self-care (01) | DRG 253 ==
LOC: ERS 00:04 → T4-B 03:23
PROVIDERS: ADMIT Internal Medicine; ATTEND Hospitalist
PROC: 047K341 Dilation of Right Femoral Artery with Drug-eluting Intraluminal Device, using Drug-Coated Balloon, Percutaneous Approach (ICD-10-PCS; principal; 2025-09-21)
PROC: B41F1ZZ Fluoroscopy of Right Lower Extremity Arteries using Low Osmolar Contrast (ICD-10-PCS; 2025-09-21)
PROC: B4101ZZ Fluoroscopy of Abdominal Aorta using Low Osmolar Contrast (ICD-10-PCS; 2025-09-21)
DX: E11.51 Type 2 diabetes mellitus with diabetic peripheral angiopathy without gangrene (principal); L03.115 Cellulitis of right lower limb; E11.628 Type 2 diabetes mellitus with other skin complications; I10 Essential (primary) hypertension; I25.10 Atherosclerotic heart disease of native coronary artery without angina pectoris; E11.65 Type 2 diabetes mellitus with hyperglycemia; E87.5 Hyperkalemia; Z79.84 Long term (current) use of oral hypoglycemic drugs; Z79.899 Other long term (current) drug therapy
CPT/HCPCS: 36247; 36415; 36416; 70250; 75635; 80048; 80053; 80202; 83036; 83605; 85025; 85347; 86141; 87040; 96365; 96367; 96375; 97139; 99152; C1760; C1769; C1887; C1894; C2623; J0692; J1644; J1815; J2003; J2250; J2270; J2405; J3010; J3373; J7050; Q9967

== ENCOUNTER 2025-09-24 05:36 | Inpatient (IN) | payer MEDICARE ==
[2025-09-24 07:08] LABS: #Basophils 0.15 10x3/uL (0.0-0.2); #Eosinophils 0.32 10x3/uL (0.0-0.7); #Monocytes 0.95 10x3/uL (0.11-0.59); #Neutrophils 8.52 10x3/uL (1.40-6.50); %Basophils 1.2 % (0.0-1.0); %Eosinophils 2.5 % (0.0-10.0); %Lymphocytes 21.3 % (21.0-51.0); %Monocytes 7.5 % (0.0-10.0); %Neutrophils 67.2 % (42.0-75.0); Hematocrit 38.2 % (42.0-52.0); Hemoglobin 12.7 g/dL (14.0-18.0); Mean Corpuscular Hemoglobin 29.8 pg (27.0-31.0); Mean Corpuscular Volume 89.7 fL (78.0-98.0); Platelet Count 286 10x3/uL (130-400); Red Blood Cell (RBC) Count 4.26 mill/uL (4.70-6.10); White Blood Cell (WBC) Count 12.68 10x3/uL (4.8-10.8)
[2025-09-24] MEDS ORDERED: HYDROcodone/Acetaminophen 7.5/325 mg Tablet ONE (07:08)
[2025-09-24 07:58] LABS: ALT (SGPT) 33 U/L (Less than 45); AST (SGOT) 28 U/L (11-34); Albumin 3.9 g/dL (3.1-4.5); Alkaline Phosphatase 384 U/L (40-110); Anion Gap 16 mmol/L (10-20); BUN (Urea Nitrogen) 29 mg/dL (8.4-25.7); Bilirubin, Total 0.4 mg/dL (0.3-1.2); Calc. Creatinine Clearance 0 mL/min (70-130); Calcium 9.4 mg/dL (7.8-10.44); Carbon Dioxide 21 mmol/L (23-31); Chloride 103 mmol/L (98-107); Globulin 3.7 g/dL (2.4-3.5); Glucose 87 mg/dL (80-115); Potassium 4.4 mmol/L (3.5-5.1); Sodium 136 mmol/L (136-145)
[2025-09-24] MEDS ORDERED: Cefepime 2 GM VIAL ONE (07:58)
[2025-09-24] MEDS ORDERED: Vancomycin 1 GM/200 ML (FROZEN) BAG ONE (07:59)
[2025-09-24] MEDS ORDERED: Melatonin 3 MG TAB PO PRN (11:33)
[2025-09-24] MEDS ORDERED: Glucagon 1 MG/ML KIT IM PRN (11:33)
[2025-09-24] MEDS ORDERED: Dextrose 50% Abboject 50 ML SYRINGE SLOW IVP PRN (11:33)
[2025-09-24] MEDS: Vancomycin 1 GM in Premix 1 BAG IVPB SCH (13:55)
[2025-09-24] MEDS: Enoxaparin 40 MG (0.4 mL) SYRINGE SC SCH (14:01)
[2025-09-24] MEDS: Carvedilol 3.125 MG TAB PO SCH (16:23)
[2025-09-24] MEDS: Acetaminophen 325 MG TAB PO PRN (20:07)
[2025-09-24] MEDS: Sacubitril 24MG/Valsartan 26 MG TAB PO SCH (20:08)
[2025-09-24] MEDS: Insulin Glargine 30 UNITS/0.3 ML VIAL SC SCH (20:08)
[2025-09-24] MEDS: glipiZIDE 10 MG TAB PO SCH (20:08)
[2025-09-24] MEDS: NIFEdipine XL 30 MG ER.TAB PO SCH (20:08)
[2025-09-24] MEDS: Ketorolac Tromethamine 30 MG (1 mL) VIAL IVP PRN (23:25)
[2025-09-25 04:53] LABS: #Basophils 0.12 10x3/uL (0.0-0.2); #Eosinophils 0.24 10x3/uL (0.0-0.7); #Monocytes 0.63 10x3/uL (0.11-0.59); #Neutrophils 7.40 10x3/uL (1.40-6.50); %Basophils 1.2 % (0.0-1.0); %Eosinophils 2.4 % (0.0-10.0); %Lymphocytes 14.7 % (21.0-51.0); %Monocytes 6.4 % (0.0-10.0); %Neutrophils 74.9 % (42.0-75.0); Hematocrit 36.2 % (42.0-52.0); Hemoglobin 12.1 g/dL (14.0-18.0); Mean Corpuscular Hemoglobin 30.0 pg (27.0-31.0); Mean Corpuscular Volume 89.8 fL (78.0-98.0); Platelet Count 284 10x3/uL (130-400); Red Blood Cell (RBC) Count 4.03 mill/uL (4.70-6.10); White Blood Cell (WBC) Count 9.88 10x3/uL (4.8-10.8)
[2025-09-25 05:02] LABS: Vancomycin, Random 12.3 ug/mL (See Comment)
[2025-09-25 05:03] LABS: Anion Gap 16 mmol/L (10-20); BUN (Urea Nitrogen) 29 mg/dL (8.4-25.7); Calc. Creatinine Clearance 76 mL/min (70-130); Calcium 8.8 mg/dL (7.8-10.44); Carbon Dioxide 22 mmol/L (23-31); Chloride 103 mmol/L (98-107); Glucose 62 mg/dL (80-115); Potassium 3.7 mmol/L (3.5-5.1); Sodium 137 mmol/L (136-145)
[2025-09-25] MEDS: Pantoprazole 40 MG DR.TAB PO SCH (08:42)
[2025-09-25] MEDS: Enoxaparin 40 MG (0.4 mL) SYRINGE SC SCH (08:48)
[2025-09-25] MEDS: Aspirin 81 mg Enteric Coated Tablet PO SCH (08:49)
[2025-09-26 05:47] LABS: #Basophils 0.15 10x3/uL (0.0-0.2); #Eosinophils 0.31 10x3/uL (0.0-0.7); #Monocytes 0.64 10x3/uL (0.11-0.59); #Neutrophils 5.42 10x3/uL (1.40-6.50); %Basophils 1.7 % (0.0-1.0); %Eosinophils 3.4 % (0.0-10.0); %Lymphocytes 27.7 % (21.0-51.0); %Monocytes 7.1 % (0.0-10.0); %Neutrophils 59.9 % (42.0-75.0); Hematocrit 38.8 % (42.0-52.0); Hemoglobin 12.8 g/dL (14.0-18.0); Mean Corpuscular Hemoglobin 29.6 pg (27.0-31.0); Mean Corpuscular Volume 89.8 fL (78.0-98.0); Platelet Count 322 10x3/uL (130-400); Red Blood Cell (RBC) Count 4.32 mill/uL (4.70-6.10); White Blood Cell (WBC) Count 9.05 10x3/uL (4.8-10.8)
[2025-09-26 06:03] LABS: ALT (SGPT) 29 U/L (Less than 45); AST (SGOT) 31 U/L (11-34); Albumin 3.4 g/dL (3.1-4.5); Alkaline Phosphatase 348 U/L (40-110); Anion Gap 13 mmol/L (10-20); BUN (Urea Nitrogen) 23 mg/dL (8.4-25.7); Bilirubin, Total 0.3 mg/dL (0.3-1.2); Calc. Creatinine Clearance 83 mL/min (70-130); Calcium 8.9 mg/dL (7.8-10.44); Carbon Dioxide 21 mmol/L (23-31); Chloride 106 mmol/L (98-107); Globulin 3.6 g/dL (2.4-3.5); Glucose 203 mg/dL (80-115); Magnesium 1.9 mg/dL (1.6-2.6); Potassium 4.2 mmol/L (3.5-5.1); Sodium 136 mmol/L (136-145)
[2025-09-27 05:22] LABS: #Basophils 0.16 10x3/uL (0.0-0.2); #Eosinophils 0.39 10x3/uL (0.0-0.7); #Monocytes 0.73 10x3/uL (0.11-0.59); #Neutrophils 5.31 10x3/uL (1.40-6.50); %Basophils 1.8 % (0.0-1.0); %Eosinophils 4.5 % (0.0-10.0); %Lymphocytes 24.3 % (21.0-51.0); %Monocytes 8.4 % (0.0-10.0); %Neutrophils 60.7 % (42.0-75.0); Hematocrit 36.3 % (42.0-52.0); Hemoglobin 12.2 g/dL (14.0-18.0); Mean Corpuscular Hemoglobin 30.3 pg (27.0-31.0); Mean Corpuscular Volume 90.3 fL (78.0-98.0); Platelet Count 273 10x3/uL (130-400); Red Blood Cell (RBC) Count 4.02 mill/uL (4.70-6.10); White Blood Cell (WBC) Count 8.74 10x3/uL (4.8-10.8)
[2025-09-27 05:45] LABS: Vancomycin, Random 15.2 ug/mL (See Comment)
[2025-09-27 05:47] LABS: ALT (SGPT) 20 U/L (Less than 45); AST (SGOT) 23 U/L (11-34); Albumin 2.9 g/dL (3.1-4.5); Alkaline Phosphatase 282 U/L (40-110); Anion Gap 14 mmol/L (10-20); BUN (Urea Nitrogen) 21 mg/dL (8.4-25.7); Bilirubin, Total 0.3 mg/dL (0.3-1.2); Calc. Creatinine Clearance 80 mL/min (70-130); Calcium 8.6 mg/dL (7.8-10.44); Carbon Dioxide 19 mmol/L (23-31); Chloride 107 mmol/L (98-107); Globulin 3.2 g/dL (2.4-3.5); Glucose 198 mg/dL (80-115); Magnesium 1.8 mg/dL (1.6-2.6); Potassium 4.5 mmol/L (3.5-5.1); Sodium 135 mmol/L (136-145)
[2025-09-27] MEDS: HYDROmorphone 0.5 MG/0.5 ML SYRINGE SLOW IVP SCH (20:00)
[2025-09-28] MEDS: HYDROmorphone 0.5 MG/0.5 ML SYRINGE SLOW IVP SCH (02:04)
[2025-09-28 05:17] LABS: #Basophils 0.17 10x3/uL (0.0-0.2); #Eosinophils 0.40 10x3/uL (0.0-0.7); #Monocytes 0.85 10x3/uL (0.11-0.59); #Neutrophils 4.83 10x3/uL (1.40-6.50); %Basophils 2.0 % (0.0-1.0); %Eosinophils 4.7 % (0.0-10.0); %Lymphocytes 26.3 % (21.0-51.0); %Monocytes 10.0 % (0.0-10.0); %Neutrophils 56.8 % (42.0-75.0); Hematocrit 35.0 % (42.0-52.0); Hemoglobin 11.3 g/dL (14.0-18.0); Mean Corpuscular Hemoglobin 29.3 pg (27.0-31.0); Mean Corpuscular Volume 90.7 fL (78.0-98.0); Platelet Count 300 10x3/uL (130-400); Red Blood Cell (RBC) Count 3.86 mill/uL (4.70-6.10); White Blood Cell (WBC) Count 8.51 10x3/uL (4.8-10.8)
[2025-09-28] MEDS: FLU (Fluad Triv) 25-26 (65UP)PF 45 MCG/0.5 ML Syringe IM ONE (08:14)
[2025-09-28] MEDS: PNEUMOC 20-VAL CONJ-DIP CRM/PF 0.5 ML SYRINGE IM ONE (08:15)
[2025-09-28] MEDS: Vancomycin 1.25 GM / NS 250 ML VIAL-2-BAG IVPB SCH (08:52)
[2025-09-29 10:04] VITALS: TEMP 98.7
[2025-09-29 15:41] VITALS: BP 146/66
[2025-09-29] MEDS ORDERED: Amoxicillin/Potassium Clav 875 MG TAB PO SCH (21:00)
== END 2025-09-29 15:37 | disposition home or self-care (01) | DRG 638 ==
LOC: ERS 05:36 → T4-A 08:39
PROVIDERS: ADMIT Internal Medicine; ATTEND Student in an Organized Health Care Education/Training Program
DX: E11.628 Type 2 diabetes mellitus with other skin complications (principal); I42.9 Cardiomyopathy, unspecified; L03.115 Cellulitis of right lower limb; I50.22 Chronic systolic (congestive) heart failure; I25.10 Atherosclerotic heart disease of native coronary artery without angina pectoris; Z95.1 Presence of aortocoronary bypass graft; Z90.49 Acquired absence of other specified parts of digestive tract; E11.51 Type 2 diabetes mellitus with diabetic peripheral angiopathy without gangrene; I11.0 Hypertensive heart disease with heart failure; Z79.4 Long term (current) use of insulin; Z79.84 Long term (current) use of oral hypoglycemic drugs
CPT/HCPCS: 36415; 36416; 80048; 80053; 80202; 83605; 83735; 85025; 86141; 87040; 96365; 96366; 96367; 97139; J0692; J1171; J1650; J1815; J1885; J2270; J2272; J3373; J7030; J7050

== ENCOUNTER 2025-10-05 17:25 | Emergency (ER) | payer MEDICARE ==
[2025-10-05] MEDS ORDERED: Ondansetron PF 4 MG/2 ML Vial ONE (18:18)
[2025-10-05 18:26] LABS: #Basophils 0.11 10x3/uL (0.0-0.2); #Eosinophils 0.20 10x3/uL (0.0-0.7); #Monocytes 0.49 10x3/uL (0.11-0.59); #Neutrophils 6.82 10x3/uL (1.40-6.50); %Basophils 1.2 % (0.0-1.0); %Eosinophils 2.2 % (0.0-10.0); %Lymphocytes 16.2 % (21.0-51.0); %Monocytes 5.4 % (0.0-10.0); %Neutrophils 74.9 % (42.0-75.0); Hematocrit 34.0 % (42.0-52.0); Hemoglobin 11.5 g/dL (14.0-18.0); Mean Corpuscular Hemoglobin 30.0 pg (27.0-31.0); Mean Corpuscular Volume 88.8 fL (78.0-98.0); Platelet Count 341 10x3/uL (130-400); Red Blood Cell (RBC) Count 3.83 mill/uL (4.70-6.10); White Blood Cell (WBC) Count 9.10 10x3/uL (4.8-10.8)
[2025-10-05 18:45] LABS: ALT (SGPT) 127 U/L (Less than 45); AST (SGOT) 88 U/L (11-34); Albumin 3.4 g/dL (3.1-4.5); Alkaline Phosphatase 506 U/L (40-110); Anion Gap 15 mmol/L (10-20); BUN (Urea Nitrogen) 24 mg/dL (8.4-25.7); Bilirubin, Total 0.4 mg/dL (0.3-1.2); Calc. Creatinine Clearance 0 mL/min (70-130); Calcium 9.2 mg/dL (7.8-10.44); Carbon Dioxide 23 mmol/L (23-31); Chloride 101 mmol/L (98-107); Globulin 3.7 g/dL (2.4-3.5); Glucose 247 mg/dL (80-115); Potassium 4.2 mmol/L (3.5-5.1); Sodium 135 mmol/L (136-145)
== END 2025-10-05 20:25 | disposition home or self-care (01) ==
LOC: ERS 17:25
DX: M79.671 Pain in right foot (principal); I11.0 Hypertensive heart disease with heart failure; I50.9 Heart failure, unspecified; E11.9 Type 2 diabetes mellitus without complications; I25.2 Old myocardial infarction; Z79.82 Long term (current) use of aspirin; Z79.4 Long term (current) use of insulin; Z79.899 Other long term (current) drug therapy
CPT/HCPCS: 73630; 80053; 83605; 85025; 86141; 87040; J2270; J2405; 96374; 96375

== ENCOUNTER 2025-10-12 22:39 | Emergency (ER) | payer MEDICARE | END 2025-10-13 00:43 | disposition home or self-care (01) | LOC: ERS 22:39 | DX: M25.571 Pain in right ankle and joints of right foot (principal); E11.9 Type 2 diabetes mellitus without complications; I25.2 Old myocardial infarction; I11.0 Hypertensive heart disease with heart failure; I50.9 Heart failure, unspecified; Z95.5 Presence of coronary angioplasty implant and graft | CPT/HCPCS: 96372; 99282; J2270 ==